=== PATIENT | male | born 1930 | race Caucasian/White ===

== ENCOUNTER 2018-01-04 15:49 | Inpatient (IN) | payer OTHER ==
[~2018-01-04] VITALS: Ht 182.9 cm; Wt 85.7 kg
--- NOTE | 2018-01-04 15:49 | NUR ---
BROUGHT IN BY [facility], PLACED IN BED #3 AND TRIAGED. REPORT GIVEN TO VAL
[2018-01-04 15:50] VITALS: BP_SYST 147
--- NOTE | 2018-01-04 16:00 | NUR ---
PT BIB FOR HEAD AND AND HAND INJURY S/P UNWITNESSED FALL. PT HAS HEMATOMA TO R FOREHEAD.PT [facility] [place].
[2018-01-04] MEDS ORDERED: MORPHINE 2 MG/ML INJ. SYRINGE IVP ONE (17:00)
[2018-01-04] MEDS ORDERED: DIPHENHYDRAMINE INJ 50 MG/ML VIAL IVP ONE (17:00)
[2018-01-04 17:07] LABS: BASOPHILS % (AUTO) 0.7 % (0.0-2.0); EOSINOPHILS # (AUTO) 0.1 K/uL (0.0-0.4); EOSINOPHILS % (AUTO) 1.9 % (0.0-4.0); HEMATOCRIT 32.8 % (36-54); HEMOGLOBIN 10.8 g/dL (14.0-18.0); LYMPHOCYTES # (AUTO) 0.6 K/uL (1.0-5.5); LYMPHOCYTES % (AUTO) 14.1 % (20.5-51.5); MEAN CORPUSCULAR HEMOGLOBIN 29 pg (27-31); MEAN CORPUSCULAR HGB CONC 33 % (32-36); MEAN CORPUSCULAR VOLUME 89 fL (79.0-98.0); MONOCYTES # (AUTO) 0.5 K/uL (0.0-1.0); MONOCYTES % (AUTO) 11.7 % (1.7-9.3); NEUTROPHILS # (AUTO) 3.4 K/uL (1.8-7.7); NEUTROPHILS % (AUTO) 71.6 % (40.0-70.0); PLATELET COUNT (AUTO) 126 K/uL (130-430); RED BLOOD CELL COUNT(AUTO) 3.69 MIL/uL (4.2-6.2); RED CELL DISTRIBUTION WIDTH 16.7 % (9.0-15.0); WHITE BLOOD COUNT (AUTO) 4.6 K/uL (4.8-10.8)
--- NOTE | 2018-01-04 17:10 | NUR ---
PT MEDICATED FOR HTN. 220/105. PT TOLERATED MEDICATION WELL.
[2018-01-04 17:19] LABS: PROTHROMBIN TIME 9.7 SECS (9.5-12.5)
--- NOTE | 2018-01-04 17:30 | NUR ---
WOUND CARE DONE BY EMT.
[2018-01-04 17:33] LABS: ANION GAP 7 (5-15); CALCIUM 8.5 mg/dL (8.4-11.0); CHLORIDE 111 mmol/L (98-107); CREATININE 1.69 mg/dL (0.55-1.30); GLUCOSE 111 mg/dL (70-99); POTASSIUM 3.9 mmol/L (3.5-5.1); SODIUM SERUM 143 mmol/L (136-145); UREA NITROGEN, BLOOD 28 mg/dL (8-21)
[2018-01-04 17:40] LABS: ALANINE AMINOTRANSFERASE 19 U/L (12-78); ALBUMIN 3.3 g/dL (3.4-4.8); ASPARTATE AMINOTRANSFERASE 15 U/L (10-37); FREE T4 (FREE THYROXINE) 0.5 ng/dL (0.6-1.6); TOTAL BILIRUBIN 0.2 mg/dL (0.0-1.0)
[2018-01-04 17:43] LABS: ALCOHOL, BLOOD < 3 mg/dL (<10)
[2018-01-04] MEDS ORDERED: cloNIDine HCL 0.1 MG TABLET PO ONE ×2 (17:45→20:00)
[2018-01-04] MEDS ORDERED: BACITRACIN 1 GM OINT TP ONE (17:48)
--- NOTE | 2018-01-04 18:40 | NUR ---
PT TO BE ADMITTED PER REQUEST OF FAMILY AFTER DISCUSSION W/ .CONTINUING TO MONITOR
--- NOTE | 2018-01-04 19:10 | NUR ---
Recieved report from Rj REYES will assume care at this time.
--- NOTE | 2018-01-04 19:30 | NUR ---
End of life care decisions discussed with patient by Dr. Guzmán. Opportunity for questions and concerns addressed. Patient's code status is Full Code paperwork completed and placed in chart.
--- NOTE | 2018-01-04 20:01 | NUR ---
Patient will be admitted to care of Dr. Rizzo. Admitted to Telemetry unit. Will go to room 114A. Belongings list completed. Summary report printed. Report will be given at bedside.
--- NOTE | 2018-01-04 20:05 | NUR ---
Patient to be admitted to telemetry. Patient current blood pressure 206/93. 0.2mg catapress to be given to normalize blood pressure prior to transfer.
[2018-01-04] MEDS ORDERED: BUPR300T55 PO (20:26)
[2018-01-04] MEDS ORDERED: FINA5TAB3 PO (20:26)
[2018-01-04] MEDS ORDERED: VILA20TA PO (20:26)
[2018-01-04] MEDS ORDERED: FAMO20TA8 PO (20:26)
[2018-01-04] MEDS ORDERED: COR25 PO (20:26)
[2018-01-04] MEDS ORDERED: DIVA250T PO ×2 (20:26)
[2018-01-04] MEDS ORDERED: LIP10 PO (20:26)
[2018-01-04] MEDS ORDERED: VITD2000 PO (20:26)
--- NOTE | 2018-01-04 20:26 | NUR ---
Medication reconciliation completed with information provided by PATIENT'S FAMILY. Any prior medication reconciliation on file was reviewed and corrected.
[2018-01-04] MEDS ORDERED: hydrALAZINE HCL 20 MG/ML VIAL IVP ONE (20:30)
[2018-01-04] MEDS ORDERED: MORPHINE 4 MG/ML INJ. SYRINGE IVP ONE (20:45)
[2018-01-04 20:48] VITALS: BP_SYST 149
--- NOTE | 2018-01-04 20:48 | NUR ---
ADMISSION NOTE Received patient from ER via gurney. Patient admitted with diagnosis of Brain Mass. Patient is awake, alert, oriented X 3. Patient oriented to hospital room, call light, toileting, pain management and safety-teach back done. Patient informed that AMY Cramer will be PRIMARY nurse and that their room number is 114A. Personal belongings checked and Belongings List documented. Call light within reach.
--- NOTE | 2018-01-04 20:50 | NUR ---
Transfer to Telemetry via ACLS protocol. Licensed nurse present. IV present no signs or symptoms of infiltration.
--- NOTE | 2018-01-04 21:00 | NUR ---
Initial RN Note Pt is fully awake, alert and oriented x3. No c/o pain or discomfort at this time. Pt is Hungarian speaking and able to make his needs known. Saline lock in LAC is without any signs of infiltration. Rt arm and left 5th finger splints are intact with no circulatory impairment noted. Call light is with pt and bed alarm is on. Pt was instructed to call for assistance as needed and pt verbalized understanding.
--- NOTE | 2018-01-04 23:00 | NUR ---
Rounds Pt is sleeping comfortably in bed. No acute distress noted. Fall and seizure precautions are in place.
[2018-01-05 00:40] VITALS: BP_SYST 172
--- NOTE | 2018-01-05 01:00 | NUR ---
Rounds Pt continues to sleep without any distress noted. Call light is with pt and bed alarm is on. Side rails are padded and no seizure activity noted.
--- NOTE | 2018-01-05 03:00 | NUR ---
Rounds Pt is sleeping without any distress noted. Call light is with pt and bed alarm is on. No seizure activity noted and side rails are padded.
[2018-01-05 03:20] VITALS: BP_SYST 94
--- NOTE | 2018-01-05 05:00 | NUR ---
Rounds Pt is sleeping comfortably in bed. Fall, seizure and safety precautions are in place.
--- NOTE | 2018-01-05 06:32 | NUR ---
Closing Note Pt is awake and resting quietly in bed. No c/o pain or discomfort. Saline lock is intact in LAC. Call light is with pt and bed alarm is on. Splints on right arm and left 5th finger are dry and intact with neurovascular checks WNL. Will endorse to day shift nurse.
--- NOTE | 2018-01-05 07:13 | NUR ---
Opening Note Patient resting in bed, eyes closed, breathing unlabored on room air, symmetrical chest expansion, no signs of distress, IV site saline locked, safety precautions in place, bed in lowest position with 3 side rails up, bed alarm on, call light and bedside table left within reach, will be back to check on patient
[2018-01-05 08:05] VITALS: BP_SYST 121
[2018-01-05] MEDS ORDERED: HYDROcodone/ACETAMIN 5-325 MG TAB (NORCO/ VICODIN) PO PRN (08:15)
[2018-01-05] MEDS: buPROPion HCL 150 MG XL TAB PO SCH (08:44)
[2018-01-05] MEDS: FINASTERIDE 5 MG TABLET (PROSCAR) PO SCH (08:45)
[2018-01-05] MEDS: CARVEDILOL 25 MG TABLET (COREG) PO SCH ×2 (08:45→21:13)
[2018-01-05] MEDS: FAMOTIDINE 20 MG TABLET PO SCH (08:45)
[2018-01-05] MEDS: DIVALPROEX SODIUM 250 MG TAB.SR.24H (DEPAKOTE ER) PO SCH ×2 (08:45→21:05)
[2018-01-05] MEDS: HYDROcodone/ACETAMIN 5-325 MG TAB (NORCO/ VICODIN) PO PRN ×2 (08:54→18:18)
[2018-01-05] MEDS ORDERED: NON-FORMULARY MEDICATION (Vilazodone Hydrochloride (Viibryd) 40 MG) PO SCH (09:00)
--- NOTE | 2018-01-05 09:03 | NUR ---
Medication Administration Patient resting in bed, awake and alert, educated him regarding medications, verbalized understanding, tolerated well by mouth, breathing unlabored on room air, neurovascular checks assessed, able to move fingers and cap refill <3 seconds, educated patient on pain management, verbalized understanding, administered per pain protocol, educated patient on use of call light for assistance, verbalized understanding, call light and bedside table left within reach, will continue to monitor
--- NOTE | 2018-01-05 09:15 | NUR ---
Dr. Matthias Cortez at this time, will follow through with MD mathias
--- NOTE | 2018-01-05 09:50 | NUR ---
CONSULT ORTHO RADIAL FRACTURE DR WOO [phone] S/W [facility] OFFICE @7089
--- NOTE | 2018-01-05 10:00 | NUR ---
CONSULT ONCOLOGY MELANOMA DR BUNDY [phone] S/W [facility] OFFICE @ 3516
--- NOTE | 2018-01-05 11:57 | NUR ---
Wound Evaluation: Late note for 1157 secondary to patient care. Wound Consult ordered for Low Ramana Score. Patient evaluated for a low Ramana score of 16. Patient was awake, alert, oriented 3, and received in a Ann Marie Bed with an Atmos-Air 9000 mattress. Patient needs assist to turn in bed. Skin is fair. Recommend encourage and assist patient every 2 hours with pillow support. Elevate, off-load and float bilateral heels with pillows. Offload pressure areas with pillows for pressure re-distribution. Perform skin care and monitor skin integrity Q shift. Use moisture barrier cream on moisture susceptible areas QID and PRN for soiling. Skin assessment: 1. Right anterior lateral forehead: Bump, with ecchymosis, sustained from fall, present on admission. Site has 85% red tissue, 5% pink tissue, 10% black tissue. No odor, no drainage. Periwound intact. Measures 3.9 cm x 3.17. Recommend: No dressing needed. Continue to monitor site for worsening condition. Will continue to follow as a Ramana.
--- NOTE | 2018-01-05 12:45 | NUR ---
Neurovascular Check performed at this time, able to wiggle fingers of both hands, denies pain at this time, states it is uncomfortable, educated patient on pain management, verbalized understanding, IV site saline locked, no other needs at this time, educated patient on use of call light for assitance, verbalized understanding, safety precautions remain in place, room close to station, bedside table and call light left within reach, will continue to monitor
[2018-01-05 12:50] VITALS: BP_SYST 128
--- NOTE | 2018-01-05 14:04 | NUR ---
Patient resting in bed awake and alert, neurovascular checks within normal limits on both extremities, IV site patent, breathing unlabored on room air, safety precautions remain in place, room close to station, bedside table and call light left within reach, will continue to monitor
--- NOTE | 2018-01-05 16:05 | NUR ---
Dr. Hennessy rounded, casting cart at bedside, MD stated patient will not receive cast today, pending X-ray results, stated bruising on fingers is normal, neurovascular checks are within normal limits, patient resting in bed, safety precautions remain in place, bedside table and call light left within reach, will continue to monitor
[2018-01-05 16:50] VITALS: BP_SYST 140
[2018-01-05] MEDS ORDERED: COMMUNICATION ORDER XX SCH (17:15)
[2018-01-05] MEDS: VIIBRYD 40 MG PO SCH (18:17)
[2018-01-05] MEDS: D5/0.45 NS 1,000 ML IV SCH (18:18)
--- NOTE | 2018-01-05 18:30 | NUR ---
Pain Medication patient resting in bed, awake and alert, complaining of pain on his right arm, stated he his arm on the side rail, norco given per pain scale, IV fluids infusing at this time, breathing unlabored on room air, IV site patent, safety precautions in place, bedside table and call light left within reach, will continue to monitor
--- NOTE | 2018-01-05 19:10 | NUR ---
OPENING NOTE Patient resting in bed awake, alert, oriented x4. Breathing unlabored and even on room air. No signs of distress, no needs at this time. Fall and safety precautions in place. Bed in lowest position, brake on, alarm on, call light within reach. IVF infusing as ordered via left AC #20. Will continue to monitor.
[2018-01-05 20:00] VITALS: BP_SYST 144
[2018-01-05] MEDS: ATORVASTATIN 10 MG TABLET PO SCH (21:05)
[2018-01-05] MEDS ORDERED: CARVEDILOL 25 MG TABLET (COREG) ONE (21:10)
--- NOTE | 2018-01-05 23:52 | NUR ---
Patient resting in bed with eyes closed. Breathing unlabored and even on room air. No signs of distress, no needs at this time. Fall and safety precautions in place. Bed in lowest position, brake on, alarm on, call light within reach. IVF infusing as ordered. Will continue to monitor.
[2018-01-06 00:08] VITALS: BP_SYST 145
[2018-01-06] MEDS: HYDROcodone/ACETAMIN 5-325 MG TAB (NORCO/ VICODIN) PO PRN ×4 (03:12→20:08)
--- NOTE | 2018-01-06 03:12 | NUR ---
Pt c/o pain. Administered PRN norco PO as ordered. Educated pt on safety and side effects. Encouraged call for assist.
[2018-01-06 06:52] LABS: ANION GAP 5 (5-15); CALCIUM 8.3 mg/dL (8.4-11.0); CHLORIDE 108 mmol/L (98-107); CREATININE 1.79 mg/dL (0.55-1.30); GLUCOSE 110 mg/dL (70-99); SODIUM SERUM 140 mmol/L (136-145); UREA NITROGEN, BLOOD 27 mg/dL (8-21)
--- NOTE | 2018-01-06 07:25 | NUR ---
CLOSING NOTE Gave report to day shift nurse, Shailesh, RN. Patient resting in bed awake, alert, oriented x4. Breathing unlabored and even on room air. No signs of distress, no needs at this time. Fall and safety precautions in place. Bed in lowest position, brake on, alarm on, call light within reach. IVF infusing as ordered. Informed Shailesh that Dr. Rod will be arriving this morning for possible cast/splint placement. Casting cart at the bedside. Endorsed care to day shift nurse.
--- NOTE | 2018-01-06 07:40 | NUR ---
AM rounds patient resting in bed, a/ox4, denies pain, assessment complete, right arm in cast and left hand fingers in splint, neurovascular checks complete, IV line is patent and infusing well, educated the patient on plan of care and call light system and to call for any assistance, he verbalized understanding, bed in lowest position, three side rails up, bed alarm on, bed close to nursing station, fall, aspiration and seizure precautions in place, continuing to monitor.
--- NOTE | 2018-01-06 07:45 | NUR ---
Dr. Viola eduardo, splinted/casted the patient's left hand and forearm, continuing neurochecks, patient tolerated well.
--- NOTE | 2018-01-06 08:37 | NUR ---
Called pharmacy missing Depakote 250mg PO, not available in Pyx[facility], spoke with Uzair who will refill the medication.
[2018-01-06] MEDS: CARVEDILOL 25 MG TABLET (COREG) PO SCH ×2 (08:42→20:43)
[2018-01-06] MEDS: FAMOTIDINE 20 MG TABLET PO SCH (08:42)
[2018-01-06] MEDS: buPROPion HCL 150 MG XL TAB PO SCH (08:43)
[2018-01-06] MEDS: FINASTERIDE 5 MG TABLET (PROSCAR) PO SCH (08:43)
[2018-01-06] MEDS: VIIBRYD 40 MG PO SCH ×2 (08:47→09:03)
--- NOTE | 2018-01-06 08:47 | NUR ---
Medications patient resting in bed, awake, denies pain, educated him on all medications uses and potential side effects, he verbalized understanding and tolerated well, no other need at this time, bed in lowest position, three side rails up, bed alarm on, call light placed within reach, fall, aspiration and seizure precautions in place.
[2018-01-06 08:49] VITALS: BP_SYST 147
--- NOTE | 2018-01-06 09:00 | NUR ---
Medications patient resting in bed, awake, denies pain, educated him on all medications uses and potential side effects, he verbalized understanding and tolerated well, no other need at this time, bed in lowest position, three side rails up, bed alarm on, call light placed within reach, fall, aspiration and seizure precautions in place, assisted the patient to call his , busy tone at this time, will try again.
[2018-01-06] MEDS: DIVALPROEX SODIUM 250 MG TAB.SR.24H (DEPAKOTE ER) PO SCH ×2 (09:02→20:44)
--- NOTE | 2018-01-06 09:20 | NUR ---
Pain medication patient resting in bed, awake, states moderate pain level, educated him on pain medication uses and potential side effects, patient verbalized understanding and tolerated well, no other needs at this time, bed in lowest position, three side rails up, bed alarm on, bed close to nursing station, fall, aspiration and seizure precautions in place.
--- NOTE | 2018-01-06 09:48 | NUR ---
Nutrition Update Ramana Scale 16 noted. Pt admitted for brain mass. Diet: regular BMI: 25.6 kg/m2 RD to follow per nutrition care standards.
--- NOTE | 2018-01-06 10:05 | NUR ---
Dr. Rizzo rounds updates given, will follow up with any new orders.
[2018-01-06 12:00] VITALS: BP_SYST 111
--- NOTE | 2018-01-06 12:00 | NUR ---
DC Planning: CM spoke with pt.regarding dcp to [facility] [place] for rehab. The pt. requested cm to call Bobby/nephew or Addie/niece for their decisions. Stanley s/w with Bobby Davila at cell# [phone], work # [phone] who agreed for pt. dc to [facility] for rehabilitation. The pt. is scheduled for right distal radius and ulna fracture and left little finger acute proximal phalanx fracture surgery tomorrow.
--- NOTE | 2018-01-06 12:59 | NUR ---
RN rounds patient was up with Physical therapy, needs 2 person assistance, plan is for patient to go to SNF, family requesting slick Robertson CM. Patient is currently resting in bed, eyes closed, breathing is even and unlabored, no acute distress, bed in lowest position, three side rails up, call light within reach, fall, aspiration, seizure precautions in place, bed alarm on.
--- NOTE | 2018-01-06 14:42 | NUR ---
RN rounds patient resting in bed, was given pain medication by Annie RN, patient states pain has now improved, continuing to monitor the patient, bed in lowest position, three side rails up, bed alarm on, bed close to nursing station, fall, aspiration and seizure precautions in place, continuing to monitor.
--- NOTE | 2018-01-06 14:43 | NUR ---
Discharge Planning: LABORATORY MECHANIC HELPER has faxed dc planning packet to [facility] per CM request.
--- NOTE | 2018-01-06 15:19 | NUR ---
RN Rounds patient resting in bed, states he is uncomfortable due to being wet, cleaned the patient, turned and repositioned, patient states he feels better now, continuing to monitor, patient states pain is mild but tolerable for now, bed in lowest position, three side rails up, bed alarm on, call light placed within reach, fall, aspiration and seizure precautions in place.
[2018-01-06 16:00] VITALS: BP_SYST 117
[2018-01-06] MEDS: D5/0.45 NS 1,000 ML IV SCH (17:07)
--- NOTE | 2018-01-06 17:13 | NUR ---
RN Rounds Patient resting in bed, awake, assisted him to reposition in the bed, he states he is having pain, rated it at a mild level at this time which is tolerable at this time, new bag of IVF hung, infusing well, no other needs at this time, bed in lowest position, three side rails up, bed alarm on, call light placed within reach, fall, aspiration and seizure precautions in place.
--- NOTE | 2018-01-06 18:08 | NUR ---
Closing note patient trying to get out of bed to use the urinal, assisted the patient, cleaned him and with assistance repositioned him, patient denies pain at this time, states, "I do not feel like eating at this time," all needs met at this time, will endorse report to [facility] shift nurse, bed in lowest position, three side rails up, bed alarm on, call light placed within reach, fall, aspiration and seizure precautions in place. Addendum: 01/06/18 at 183 by Shailesh Sutherland RN Patient would like to speak to Dr. Rod regarding surgery, would like further clarification. Addendum: 01/06/18 at 184 by Shailesh Sutherland RN patient caregiver Diane at bedside, states that the patient is not sure about the surgery and would like to talk to the doctor about it more and it's best to ask the patient's niece or nephew about the surgery.
--- NOTE | 2018-01-06 18:44 | NUR ---
Attempted to call family called patient's nephew Edd Rahman at [phone] as list in patient's chart, no answer at this time.
--- NOTE | 2018-01-06 18:48 | NUR ---
Spoke with Dr. Viola Rod called to check on the patient's status, updates given at this time, informed him that the patient has some concerns regarding surgery and that attempt to reach family was made, Dr. Rod states he is familiar with the patient and his and will come tomorrow morning to speak with the patient about surgery again, keep the patient NPO except medications.
--- NOTE | 2018-01-06 19:25 | NUR ---
ROUNDS PATIENT RESTING COMFORTABLY IN BED, NOT IN DISTRESS, VITALS STABLE. NO PAIN AT THIS TIME. ASSESSMENT DONE AND DOCUMENTED. SEE FLOWSHEET. NEEDS ATTENDED TO. TURNED AND REPOSITIONED. SAFETY AND FALL PRECAUTION IN PLACED. BED IN LOW AND LOCKED POSITION. BED ALARM ON. CALL LIGHT PLACED WITHIN REACH.
[2018-01-06] MEDS: ATORVASTATIN 10 MG TABLET PO SCH (20:41)
--- NOTE | 2018-01-06 21:14 | NUR ---
MEDICATION DUE MEDICATIONS GIVEN ORDERED, TOLERATED WELL. WILL CONTINUE TO MONITOR.
--- NOTE | 2018-01-07 00:10 | NUR ---
PATIENT RESTING: Patient resting quietly. No acute distress noted. Vital signs within normal range.
[2018-01-07 00:26] VITALS: BP_SYST 165
--- NOTE | 2018-01-07 02:20 | NUR ---
ROUNDS PATIENT ASLEEP, VITALS STABLE, NO SIGNS OF ANY PAIN AND DISCOMFORT NOTED AT THIS TIME. WILL CONTINUE TO MONITOR.
--- NOTE | 2018-01-07 04:10 | NUR ---
PATIENT RESTING: Patient resting quietly. No acute distress noted. Vital signs within normal range.
--- NOTE | 2018-01-07 06:40 | NUR ---
CLOSING NOTES PATIENT AWAKE, NOT IN DISTRESS, VITALS STABLE. NO PAIN AT THIS TIME. ALL NEEDS ATTENDED TO. SAFETY AND FALL PRECAUTION MEASURES MAINTAINED. CALL LIGHT PLACED WITHIN REACH.
[2018-01-07 06:53] LABS: ANION GAP 10 (5-15); CALCIUM 8.5 mg/dL (8.4-11.0); CHLORIDE 109 mmol/L (98-107); CREATININE 1.78 mg/dL (0.55-1.30); GLUCOSE 109 mg/dL (70-99); POTASSIUM 3.8 mmol/L (3.5-5.1); SODIUM SERUM 143 mmol/L (136-145); UREA NITROGEN, BLOOD 27 mg/dL (8-21)
[2018-01-07 07:17] LABS: BILIRUBIN,URINE NEGATIVE (NEGATIVE); BLOOD, URINE 1+ (NEGATIVE); CLARITY/URINE CLEAR (CLEAR); COLOR,URINE ORANGE (YELLOW); GLUCOSE,URINE NEGATIVE (NEGATIVE); KETONES,URINE NEGATIVE (NEGATIVE); LEUKOCYTE ESTERASE ,URINE NEGATIVE (NEGATIVE); NITRITE, URINE NEGATIVE (NEGATIVE); PROTEIN URINE 1+ (NEGATIVE); UROBILINOGEN,URINE 0.2 (0.2-1.0)
[2018-01-07 07:59] LABS: BACTERIA,URINE FEW /HPF (None Seen); MUCUS,URINE None Seen /LPF (None Seen); WBC,URINE 0-3 /HPF (0-3); YEAST,URINE None Seen /HPF (None Seen)
[2018-01-07 08:00] VITALS: BP_SYST 190
--- NOTE | 2018-01-07 08:00 | NUR ---
Opening Note Report received from [facility] shift nurse. Patient has a fracture of the right wrist. Right arm is currently in a cast. Bilateral radial pulses are palpable and he is able to move all the fingers on the affected extremities. Patient also has a fracture of the left little finger which is in a splint. Patient is wake. Dr. Rod rounded on the patient. Informed consent was obtained and placed in the chart. IV is on the LAC 18g running D51/2NS@40. Seizure and fall precautions are in place. Will continue to monitor.
[2018-01-07] MEDS: buPROPion HCL 150 MG XL TAB PO SCH (09:00)
[2018-01-07] MEDS: FINASTERIDE 5 MG TABLET (PROSCAR) PO SCH (09:00)
[2018-01-07] MEDS: FAMOTIDINE 20 MG TABLET PO SCH (09:04)
[2018-01-07] MEDS: HYDROcodone/ACETAMIN 5-325 MG TAB (NORCO/ VICODIN) PO PRN (09:04)
[2018-01-07] MEDS: CARVEDILOL 25 MG TABLET (COREG) PO SCH ×2 (09:05→20:29)
[2018-01-07] MEDS: DIVALPROEX SODIUM 250 MG TAB.SR.24H (DEPAKOTE ER) PO SCH ×2 (09:06→20:30)
[2018-01-07] MEDS: VIIBRYD 40 MG PO SCH (09:06)
[2018-01-07 09:28] LABS: BASOPHILS % (AUTO) 0.5 % (0.0-2.0); EOSINOPHILS # (AUTO) 0.1 K/uL (0.0-0.4); EOSINOPHILS % (AUTO) 2.4 % (0.0-4.0); HEMATOCRIT 32.5 % (36-54); HEMOGLOBIN 10.6 g/dL (14.0-18.0); LYMPHOCYTES # (AUTO) 0.5 K/uL (1.0-5.5); LYMPHOCYTES % (AUTO) 9.3 % (20.5-51.5); MEAN CORPUSCULAR HEMOGLOBIN 29 pg (27-31); MEAN CORPUSCULAR HGB CONC 33 % (32-36); MEAN CORPUSCULAR VOLUME 88 fL (79.0-98.0); MONOCYTES # (AUTO) 0.8 K/uL (0.0-1.0); MONOCYTES % (AUTO) 13.6 % (1.7-9.3); NEUTROPHILS # (AUTO) 4.5 K/uL (1.8-7.7); NEUTROPHILS % (AUTO) 74.2 % (40.0-70.0); PLATELET COUNT (AUTO) 115 K/uL (130-430); RED BLOOD CELL COUNT(AUTO) 3.69 MIL/uL (4.2-6.2); WHITE BLOOD COUNT (AUTO) 5.9 K/uL (4.8-10.8)
[2018-01-07 10:05] VITALS: BP_SYST 164
--- NOTE | 2018-01-07 10:49 | NUR ---
RN Notes Patient is on the way to OR. All consents were signed and placed on the chart.
[2018-01-07] MEDS ORDERED: POLYMYXIN 500,000/BACIT.10,000 UNITS in NS IRR 1 L IR ONE (12:11)
[2018-01-07] MEDS ORDERED: ONDANSETRON HCL 4 MG/2 ML VIAL ONE (12:35)
[2018-01-07] MEDS ORDERED: SEVOFLURANE 15 MIN GAS INH ONE (12:35)
[2018-01-07] MEDS ORDERED: CEFAZOLIN 2 GM IVPB PREMIX 50 ML IV ONE (12:35)
[2018-01-07] MEDS ORDERED: PROPOFOL 200MG/ 20ML VIAL (DIPRIVAN) IV ONE (12:35)
[2018-01-07] MEDS ORDERED: fentaNYL CITRATE/PF 100 MCG/2 ML AMP ONE (12:35)
[2018-01-07] MEDS ORDERED: LR 1,000 ML IV.SOLN IV ONE (12:35)
[2018-01-07] MEDS ORDERED: ROCURONIUM BROMIDE 10 MG/ML (ZEMURON) ONE (12:35)
[2018-01-07] MEDS ORDERED: MIDAZOLAM HCL 5 MG/ML VIAL (VERSED) IV ONE (12:35)
[2018-01-07] MEDS: LR 1,000 ML IV SCH ×2 (12:54→13:40)
[2018-01-07] MEDS ORDERED: MORPHINE 4 MG/ML INJ. SYRINGE IVP PRN ×3 (13:00)
[2018-01-07] MEDS ORDERED: METOCLOPRAMIDE HCL 10 MG/2 ML VIAL IVP PRN (13:00)
[2018-01-07] MEDS ORDERED: MORPHINE 4 MG/ML INJ. SYRINGE ONE (13:09)
[2018-01-07 14:30] VITALS: BP_SYST 189
--- NOTE | 2018-01-07 14:30 | NUR ---
RN Notes Patient returned from OR. Right arm is in a splint. Radial pulse is palpable and patient is able to move the finger in the affected extremity. Cap refill is < 3 seconds. Patient does not report any pain at the moment. Will continue to closely monitor.
--- NOTE | 2018-01-07 15:18 | NUR ---
PT NOTES CHART REVIEWED, BUT UNABLE TO SEE PATIENT TODAY D/T PROCEDURE, WILL FOLLOW UP WITH PATIENT TOMORROW IF POSSIBLE. RN AWARE. Addendum: 01/07/18 at 1522 by Lelo Oden PT PHYSICAL THERAPY CO-SIGN The Physical Therapy Progress Notes documented by [employer] have been reviewed. Reviewed/Co-Signed by: Lelo Oden, PT Documentation Done by: Yonathan Basurto, SECOND HAND
[2018-01-07 16:00] VITALS: BP_SYST 189
[2018-01-07] MEDS: D5/0.45 NS 1,000 ML IV SCH ×2 (16:15→20:58)
--- NOTE | 2018-01-07 16:22 | NUR ---
Discharge Planning: RADHA has spoken to Pastora at [facility]; pt can go to room 6b once cleared by surgeon and physicians. SHEET METAL ERECTOR has placed ambulance on will call with [facility] ([phone]); packet has been placed at nurses station.
--- NOTE | 2018-01-07 16:40 | NUR ---
Rounds Patient is currently using the IS and doing up top 1200. Right radial pulse is palpable, right hand cap refill is < 3 seconds, patient is able to move the fingers on the affected extremity.
[2018-01-07] MEDS ORDERED: cloNIDine HCL 0.1 MG TABLET PO PRN (16:45)
--- NOTE | 2018-01-07 17:00 | NUR ---
Spoke with MD Spoke with Dr. Rod who stated that the patient may be discharged tomorrow. Called Dr. Rizzo and notified MD. Also received and order for PRN blood pressure medication form Dr. Rizzo.
--- NOTE | 2018-01-07 18:28 | NUR ---
Closing Note Patient is resting in bed. Bilateral radial pulses are palpable, cap refill on both upper extremities are palpable, and patient is able to move all the fingers on the affected extremities. Patient is using the IS able to do 1200. IV is on the D51/2NS@40. Will continue to monitor.
--- NOTE | 2018-01-07 19:25 | NUR ---
ROUNDS PATIENT RESTING COMFORTABLY IN BED, VITALS STABLE, DENIES ANY PAIN AT THIS TIME. ASSESSMENT DONE AND DOCUMENTED. SEE FLOWSHEET. NEEDS ATTENDED TO. TURNED AND REPOSITIONED AND MADE COMFORTABLE. SAFETY AND FALL PRECAUTION MEASURES IN PLACED. BED IN LOW AND LOCKED POSITION. CALL LIGHT PLACED WITHIN REACH.
[2018-01-07 20:00] VITALS: BP_SYST 115
[2018-01-07] MEDS: ATORVASTATIN 10 MG TABLET PO SCH (20:29)
--- NOTE | 2018-01-07 21:13 | NUR ---
MEDICATION DUE MEDICATIONS GIVEN SCHEDULED, TOLERATED WELL. WILL CONTINUE TO MONITOR.
--- NOTE | 2018-01-08 00:14 | NUR ---
PATIENT RESTING: Patient resting quietly. No acute distress noted. Vital signs within normal range.
[2018-01-08 00:27] VITALS: BP_SYST 140
--- NOTE | 2018-01-08 02:14 | NUR ---
ROUNDS PATIENT ASLEEP, NO SOB NOR PAIN NOTED, WILL CONTINUE TO MONITOR.
[2018-01-08] MEDS: HYDROcodone/ACETAMIN 5-325 MG TAB (NORCO/ VICODIN) PO PRN ×2 (03:25→15:04)
--- NOTE | 2018-01-08 04:12 | NUR ---
PATIENT RESTING: Patient resting quietly. No acute distress noted. Vital signs within normal range.
--- NOTE | 2018-01-08 06:55 | NUR ---
CLOSING NOTES PATIENT ASLEEP, VITALS STABLE, NO PAIN AND DISCOMFORT NOTED AT THIS TIME. ALL NEEDS ATTENDED TO. CALL LIGHT PLACED WITHIN REACH.
[2018-01-08 07:14] LABS: ANION GAP 7 (5-15); CALCIUM 8.3 mg/dL (8.4-11.0); CHLORIDE 110 mmol/L (98-107); CREATININE 2.35 mg/dL (0.55-1.30); GLUCOSE 109 mg/dL (70-99); POTASSIUM 4.3 mmol/L (3.5-5.1); SODIUM SERUM 142 mmol/L (136-145); UREA NITROGEN, BLOOD 32 mg/dL (8-21)
--- NOTE | 2018-01-08 07:30 | NUR ---
Opening Note: Patient laying in bed resting. Patient denies pain and discomfort. Breathing is even and unlabored with no distress noted. IV patent and intact running IV fluids per MD order. Seizure pads on side rails. SCD's in place. Urinal at bedside. Safety precautions in place; bed in lowest position, wheels locked, side rails x3, bed alarm activated and call light within reach. No current needs. Will continue to monitor.
[2018-01-08 08:10] VITALS: BP_SYST 163
[2018-01-08] MEDS: buPROPion HCL 150 MG XL TAB PO SCH (08:47)
[2018-01-08] MEDS: CARVEDILOL 25 MG TABLET (COREG) PO SCH (08:47)
[2018-01-08] MEDS: FINASTERIDE 5 MG TABLET (PROSCAR) PO SCH (08:47)
[2018-01-08] MEDS: DIVALPROEX SODIUM 250 MG TAB.SR.24H (DEPAKOTE ER) PO SCH (08:47)
[2018-01-08] MEDS: FAMOTIDINE 20 MG TABLET PO SCH (08:47)
[2018-01-08] MEDS: VIIBRYD 40 MG PO SCH (08:48)
--- NOTE | 2018-01-08 10:17 | NUR ---
Spoke to Dr. Mcmanus: Spoke to Dr. Mcmanus regarding discharge order. Per Dr. Mcmanus "Discharge patient to [place], but admit patient under Dr. Rizzo because I don't go to [place]." Orders received to be entered by RN.
--- NOTE | 2018-01-08 11:00 | NUR ---
Dr. Rod at bedside: Dr. Rod at bedside. Assessed patient.
--- NOTE | 2018-01-08 12:00 | NUR ---
PHYSICAL THERAPY CO-SIGN The Physical Therapy Progress Notes documented by [employer]er have been reviewed. I concur with the documentation of this E BUSINESS MANAGER. Plan: continue PT as per plan of care as he shows some slow but good and steady progress with PT. Reviewed/Co-Signed by: Lelo Oden, PT Documentation Done by: Yonathan Basurto, E BUSINESS MANAGER Addendum: 01/08/18 at 1434 by Lelo Oden PT Amended: Links added.
[2018-01-08 12:04] VITALS: BP_SYST 149
--- NOTE | 2018-01-08 12:15 | NUR ---
Rounding: Patient sitting in bed resting, and caregiver at bedside. Patient repositioned. No distress noted. Morning medications tolerated well. Safety precautions in place. No current needs. Will continue to monitor.
--- NOTE | 2018-01-08 13:22 | NUR ---
Discharge Planning Note: ENGINE REPAIRER called [facility] and arranged transport for 1729. ENGINE REPAIRER called [facility] and spoke with Radha ([phone]) to provide update that pt will be transported there today; ENGINE REPAIRER confirmed that pt will be going to room 6B at [facility]. ENGINE REPAIRER updated pt's Nurse, Rekha. ENGINE REPAIRER updated pt's chart and placed chart at the nurses station. ENGINE REPAIRER met with pt, pt's (Tiburcio), and pt's caregiver at bedside. ENGINE REPAIRER provided update and provided pt's with [facility] pamphlet/contact information.
--- NOTE | 2018-01-08 13:44 | NUR ---
MRI Cancelled: MRI of the head cancelled by radiology department due to safety reasons, patient had pins placed in right wrist during surgery 01/07/18. Paged Dr. Edward to inform him and to recommend CT of the head with contrast per radiologist. Awaiting callback.
[2018-01-08 14:00] VITALS: BP_SYST 144
--- NOTE | 2018-01-08 14:06 | NUR ---
Called Dr. Rod's office to schedule appointment: Called Dr. Rod's office and scheduled and appointment for the patient on January 18 @ 1015.
--- NOTE | 2018-01-08 14:40 | NUR ---
Spoke to Dr. Edward: Spoke to Dr. Edward, made aware of cancelled MRI, Dr. Edward doesn't want a CT with contrast due to patient's renal function.
--- NOTE | 2018-01-08 15:40 | NUR ---
Called Report: Called [place] and gave report to Tessa REYES. All questions answered and call back number given.
[2018-01-08 16:03] VITALS: BP_SYST 144
--- NOTE | 2018-01-08 16:04 | NUR ---
Rounding: Patient laying in bed resting. Patient denies pain and discomfort. Breathing is even and unlabored with no distress noted. No current needs. Will continue to monitor.
--- NOTE | 2018-01-08 18:40 | NUR ---
D/C Patient Patient given medication reconciliation form and D/C instructions. Exit Care provided. Patient verbalized understanding. MD discussed with patient the results and treatment provided. Patient in stable condition, ID band removed. IV catheter removed, intact and dressing applied, no active bleeding. Patient educated on pain management. Patient, family and nuclear equipment design engineer aware of patient's follow up appointment with Dr. Rod. All belongings sent with patient's family to home. White wrist band with name and placed. Patient in pink gown and blanket. Tele monitor removed. Patient ate dinner before discharge. Patient transferred to [facility].
== END 2018-01-08 18:40 | DRG 510 ==
LOC: SED 15:49 → STU 19:58
PROVIDERS: ADMIT Internal Medicine Hospice and Palliative Medicine; ATTEND Internal Medicine Hospice and Palliative Medicine
PROC: 2W3DX1Z Immobilization of Left Lower Arm using Splint (ICD-10-PCS; 2018-01-06)
PROC: 2W38X1Z Immobilization of Right Upper Extremity using Splint (ICD-10-PCS; 2018-01-06)
PROC: 2W38X2Z Immobilization of Right Upper Extremity using Cast (ICD-10-PCS; 2018-01-06)
PROC: 0PSH35Z Reposition Right Radius with External Fixation Device, Percutaneous Approach (ICD-10-PCS; principal; 2018-01-07 11:00)
DX: S52.501A Unspecified fracture of the lower end of right radius, initial encounter for closed fracture (principal); N17.0 Acute kidney failure with tubular necrosis; S00.03XA Contusion of scalp, initial encounter; S52.601A Unspecified fracture of lower end of right ulna, initial encounter for closed fracture; C43.9 Malignant melanoma of skin, unspecified; E78.5 Hyperlipidemia, unspecified; F32.9 Major depressive disorder, single episode, unspecified; K21.9 Gastro-esophageal reflux disease without esophagitis; J44.9 Chronic obstructive pulmonary disease, unspecified; N40.0 Benign prostatic hyperplasia without lower urinary tract symptoms; I16.0 Hypertensive urgency; G62.9 Polyneuropathy, unspecified; G93.89 Other specified disorders of brain; I12.9 Hypertensive chronic kidney disease with stage 1 through stage 4 chronic kidney disease, or unspecified chronic kidney disease; S80.212A Abrasion, left knee, initial encounter; M19.042 Primary osteoarthritis, left hand; M19.041 Primary osteoarthritis, right hand; S80.211A Abrasion, right knee, initial encounter; N18.9 Chronic kidney disease, unspecified; W01.0XXA Fall on same level from slipping, tripping and stumbling without subsequent striking against object, initial encounter; S00.83XA Contusion of other part of head, initial encounter; S62.607A Fracture of unspecified phalanx of left little finger, initial encounter for closed fracture; Y93.89 Activity, other specified; Z85.51 Personal history of malignant neoplasm of bladder; Y92.098 Other place in other non-institutional residence as the place of occurrence of the external cause; Y99.8 Other external cause status; Z91.81 History of falling; Z85.46 Personal history of malignant neoplasm of prostate; S60.512A Abrasion of left hand, initial encounter; S60.511A Abrasion of right hand, initial encounter
CPT/HCPCS: 36415; 70450-TC; 71045; 72125-TC; 73140-TC; 74018; 76000; 80048; 80053; 80164-TC; 81000-TC; 82140-TC; 82533; 83605; 83735-TC; 83880; 84439; 84484; 85025; 85610-TC; 86886; 86900; 86901; 87040-TC; 87081; 93005; 94760; 96374; 96375; 96376; 97110-GP; 97116-GP; 97530-GP; 99285; C1713; G0482; J0690; J1200; J2250; J2270; J2405; J2704; J3010; J7120

== ENCOUNTER 2018-05-29 10:24 | Emergency (ER) | payer OTHER ==
[~2018-05-29] VITALS: Ht 182.9 cm; Wt 79.4 kg
[~2018-05-29 10:24] MED LIST: BUPR300T55 PO; COR25 PO; DIVA250T PO; FAMO20TA8 PO; FINA5TAB3 PO; LIP10 PO; VILA20TA PO; VITD2000 PO
[2018-05-29 10:29] VITALS: BP_SYST 207
[2018-05-29] MEDS ORDERED: KETOROLAC TROMETHAMINE 30 MG VIAL IVP ONE (10:30)
[2018-05-29] MEDS ORDERED: NACL 0.9% 1,000 ML IV ONE (10:30)
--- NOTE | 2018-05-29 10:30 | NUR ---
Patient to ER bed 6 to gown for evaluation. Side rails up. Report given to Alejandra REYES.
--- NOTE | 2018-05-29 10:34 | NUR ---
Dr Cloud at bedside examining patient
--- NOTE | 2018-05-29 10:35 | NUR ---
Pt brought by ambulance, A&Ox3, pt presents to ER with L leg , L hip pain, denies recent trauma, pt respirations even and unlabored, cap refill <3,pt denies chest pain, pt arrived with urinary catheter, no open wounds noted.
--- NOTE | 2018-05-29 10:50 | NUR ---
X-ray at bedside.
--- NOTE | 2018-05-29 11:00 | NUR ---
16 # FR Neri catheter with use of sterile technique. Immediate return of 200 cc urine noted. Bedside drainage bag placed below level of bladder. Urine sample collected and sent to lab. Pt tolerated procedure . Patient arrived with neri in place, changed due to standard of practice prior to admission. Patient unable to toilet self.
--- NOTE | 2018-05-29 11:30 | NUR ---
Pt on stable condition, VS WNL, respirations even and unlabored.
[2018-05-29 11:33] LABS: BASOPHILS % (AUTO) 0.5 % (0.0-2.0); EOSINOPHILS % (AUTO) 3.1 % (0.0-4.0); HEMATOCRIT 35.4 % (36-54); HEMOGLOBIN 11.3 g/dL (14.0-18.0); LYMPHOCYTES % (AUTO) 13.7 % (20.5-51.5); MEAN CORPUSCULAR HEMOGLOBIN 27 pg (27-31); MEAN CORPUSCULAR HGB CONC 32 % (32-36); MEAN CORPUSCULAR VOLUME 86 fL (79.0-98.0); MONOCYTES % (AUTO) 15.4 % (1.7-9.3); NEUTROPHILS % (AUTO) 67.3 % (40.0-70.0); PLATELET COUNT (AUTO) 198 K/uL (130-430); RED CELL DISTRIBUTION WIDTH 13.9 % (9.0-15.0); WHITE BLOOD COUNT (AUTO) 5.8 K/uL (4.8-10.8)
[2018-05-29 11:34] LABS: EOSINOPHILS # (AUTO) 0.2 K/uL (0.0-0.4); LYMPHOCYTES # (AUTO) 0.8 K/uL (1.0-5.5); MONOCYTES # (AUTO) 0.9 K/uL (0.0-1.0); NEUTROPHILS # (AUTO) 3.9 K/uL (1.8-7.7)
[2018-05-29 11:40] LABS: CHLORIDE 109 mmol/L (98-107); PROTHROMBIN TIME 9.8 SECS (9.5-12.5); SODIUM SERUM 144 mmol/L (136-145)
[2018-05-29 11:41] LABS: ANION GAP 7 (5-15); CALCIUM 9.1 mg/dL (8.4-11.0); GLUCOSE 87 mg/dL (70-99); UREA NITROGEN, BLOOD 28 mg/dL (8-21)
[2018-05-29 11:55] LABS: ALANINE AMINOTRANSFERASE 18 U/L (12-78); ALBUMIN 2.7 g/dL (3.4-4.8); ASPARTATE AMINOTRANSFERASE 20 U/L (10-37); LIPASE 153 U/L (73-393); TOTAL BILIRUBIN 0.2 mg/dL (0.0-1.0)
[2018-05-29 13:40] VITALS: BP_SYST 160
--- NOTE | 2018-05-29 13:40 | NUR ---
Patient given written and verbal discharge instructions and verbalizes understanding. ER MD discussed with patient the results and treatment provided. Patient in stable condition. ID arm band removed. IV catheter removed intact and dressing applied, no active bleeding. Rx of tramadol and motrin given. Patient educated on pain management and to follow up with PMD. Pain Scale 1. Opportunity for questions provided and answered. Medication side effect fact sheet provided.
[2018-05-29 14:15] LABS: BILIRUBIN,URINE NEGATIVE (NEGATIVE); BLOOD, URINE 2+ (NEGATIVE); CLARITY/URINE CLEAR (CLEAR); COLOR,URINE YELLOW (YELLOW); GLUCOSE,URINE NEGATIVE (NEGATIVE); KETONES,URINE NEGATIVE (NEGATIVE); LEUKOCYTE ESTERASE ,URINE 1+ (NEGATIVE); PH,URINE 6.5 (5.0-8.0); PROTEIN URINE 1+ (NEGATIVE)
[2018-05-29 14:16] LABS: NITRITE, URINE NEGATIVE (NEGATIVE); UROBILINOGEN,URINE 0.2 (0.2-1.0)
[2018-05-29 14:46] LABS: BACTERIA,URINE FEW /HPF (None Seen); WBC,URINE 20-50 /HPF (0-3)
[2018-05-29 14:47] LABS: MUCUS,URINE None Seen /LPF (None Seen); YEAST,URINE None Seen /HPF (None Seen)
== END 2018-05-29 13:40 | disposition home or self-care (01) ==
LOC: SED 10:24
DX: G89.29 Other chronic pain (principal); M25.552 Pain in left hip; M79.605 Pain in left leg; R03.0 Elevated blood-pressure reading, without diagnosis of hypertension; K21.9 Gastro-esophageal reflux disease without esophagitis; Z86.79 Personal history of other diseases of the circulatory system; Z85.820 Personal history of malignant melanoma of skin; Z85.51 Personal history of malignant neoplasm of bladder; Z79.899 Other long term (current) drug therapy; Z96.642 Presence of left artificial hip joint
CPT/HCPCS: 36415; 51702; 71045; 73502; 73552; 80053; 81000; 82550; 83690; 84484; 85025; 85610; 85730; 87086; 93005; 96374; 99284; J1885; J7030

== ENCOUNTER 2018-06-03 01:33 | Inpatient (IN) | payer OTHER ==
[~2018-06-03] VITALS: Ht 185.4 cm; Wt 75.7 kg
[2018-06-03 01:33] VITALS: BP_SYST 135
[2018-06-03] MEDS ORDERED: NACL 0.9% 1,000 ML IV ONE (01:39)
[2018-06-03] MEDS ORDERED: TOPXL100 PO (02:00)
[2018-06-03] MEDS ORDERED: HYDR-3917 PO (02:00)
[2018-06-03] MEDS ORDERED: PRAM0.253 PO (02:00)
[2018-06-03] MEDS ORDERED: VENL75CA PO (02:00)
[2018-06-03] MEDS ORDERED: LORA-258 PO (02:00)
[2018-06-03] MEDS ORDERED: HYDR-4039 PO (02:00)
[2018-06-03] MEDS ORDERED: DOCU50CA13 PO (02:00)
[2018-06-03] MEDS ORDERED: METH10TA4 PO (02:00)
[2018-06-03] MEDS ORDERED: MAR2.5 PO (02:00)
[2018-06-03] MEDS ORDERED: DOXA4TAB2 PO (02:00)
[2018-06-03 02:02] LABS: HEMATOCRIT 35.9 % (36-54); HEMOGLOBIN 11.5 g/dL (14.0-18.0); MEAN CORPUSCULAR HEMOGLOBIN 28 pg (27-31); MEAN CORPUSCULAR VOLUME 87 fL (79.0-98.0); RED BLOOD CELL COUNT(AUTO) 4.14 MIL/uL (4.2-6.2); WHITE BLOOD COUNT (AUTO) 8.3 K/uL (4.8-10.8)
[2018-06-03 02:03] LABS: BASOPHILS # (AUTO) 0.3 K/uL (0.0-0.2); EOSINOPHILS # (AUTO) 0.3 K/uL (0.0-0.4); EOSINOPHILS % (AUTO) 3.1 % (0.0-4.0); LYMPHOCYTES # (AUTO) 0.9 K/uL (1.0-5.5); LYMPHOCYTES % (AUTO) 10.4 % (20.5-51.5); MEAN CORPUSCULAR HGB CONC 32 % (32-36); MONOCYTES # (AUTO) 0.8 K/uL (0.0-1.0); NEUTROPHILS % (AUTO) 72.5 % (40.0-70.0); PLATELET COUNT (AUTO) 228 K/uL (130-430); RED CELL DISTRIBUTION WIDTH 14.2 % (9.0-15.0)
[2018-06-03 02:39] LABS: SODIUM SERUM 147 mmol/L (136-145)
[2018-06-03 02:40] LABS: ALANINE AMINOTRANSFERASE 18 U/L (12-78); ANION GAP 12 (5-15); ASPARTATE AMINOTRANSFERASE 21 U/L (10-37); CALCIUM 8.9 mg/dL (8.4-11.0); CHLORIDE 108 mmol/L (98-107); CREATININE 1.93 mg/dL (0.55-1.30); GLUCOSE 109 mg/dL (70-99); TOTAL BILIRUBIN 0.2 mg/dL (0.0-1.0); UREA NITROGEN, BLOOD 40 mg/dL (8-21)
[2018-06-03 02:41] LABS: ALBUMIN 2.9 g/dL (3.4-4.8); ALCOHOL, BLOOD < 3 mg/dL (<10)
[2018-06-03 02:50] LABS: BILIRUBIN,URINE NEGATIVE (NEGATIVE); BLOOD, URINE 2+ (NEGATIVE); CLARITY/URINE CLEAR (CLEAR); COLOR,URINE YELLOW (YELLOW); GLUCOSE,URINE NEGATIVE (NEGATIVE); KETONES,URINE NEGATIVE (NEGATIVE); LEUKOCYTE ESTERASE ,URINE 2+ (NEGATIVE); PH,URINE 5.5 (5.0-8.0); PROTEIN URINE 2+ (NEGATIVE)
[2018-06-03 02:51] LABS: NITRITE, URINE POSITIVE (NEGATIVE); UROBILINOGEN,URINE 0.2 (0.2-1.0)
[2018-06-03 02:58] LABS: CANNABINOID, URINE POSITIVE (NEG <=50); OPIATE, URINE POSITIVE (NEG <=100)
[2018-06-03 02:59] LABS: BARBITURATE, URINE NEGATIVE (NEG <=200); BENZODIAZEPINE, URINE POSITIVE (NEG <=150); COCAINE, URINE NEGATIVE (NEG <=150); METHAMPHETAMINES SCREEN,URINE NEGATIVE (NEG <=500); PHENCYCLIDINE SCREEN,URINE NEGATIVE (NEG <=25); UR TRICYCLIC ANTIDEPRESSANTS NEGATIVE (NEG <=300); URINE AMPHETAMINE NEGATIVE (NEG <=500); URINE METHADONE NEGATIVE (NEG <=200); URINE OXYCODONE SCREEN NEGATIVE (NEG <=100); URINE PROPOXYPHENE SCREEN NEGATIVE (NEG <=300)
[2018-06-03 03:04] LABS: INR 0.9 (0.80-1.20); PROTHROMBIN TIME 9.6 SECS (9.5-12.5)
[2018-06-03 03:05] LABS: BACTERIA,URINE MODERATE /HPF (None Seen); RBC,URINE 50-80 /HPF (0-3); WBC,URINE >100 /HPF (0-3)
[2018-06-03] MEDS ORDERED: cefTRIAXone 1 GM IVPB PREMIX 50 ML IV ONE (03:45)
[2018-06-03] MEDS ORDERED: NACL 0.9% 1,000 ML IV SCH (04:15)
[2018-06-03] MEDS ORDERED: ACETAMINOPHEN 325 MG TABLET PO PRN ×2 (04:15→08:45)
[2018-06-03] MEDS ORDERED: hydrALAZINE HCL 20 MG/ML VIAL IVP ONE (04:30)
[2018-06-03 05:37] VITALS: BP_SYST 152
[2018-06-03 08:03] VITALS: BP_SYST 158
[2018-06-03] MEDS ORDERED: DOXAZOSIN MESYLATE 2 MG TABLET PO SCH (09:00)
[2018-06-03] MEDS ORDERED: hydrALAZINE HCL 25 MG TABLET PO SCH (09:00)
[2018-06-03] MEDS ORDERED: NON-FORMULARY MEDICATION (Vilazodone Hydrochloride (Viibryd) 40 MG) PO SCH (09:00)
[2018-06-03] MEDS: DOCUSATE SODIUM 100 MG/10 ML UDC PO SCH (09:07)
[2018-06-03] MEDS: buPROPion HCL 150 MG XL TAB PO SCH (09:07)
[2018-06-03] MEDS: FINASTERIDE 5 MG TABLET (PROSCAR) PO SCH (09:09)
[2018-06-03] MEDS: DRONABINOL 2.5 MG CAPSULE PO SCH ×2 (09:09→20:47)
[2018-06-03] MEDS: 0.45% NACL 1,000 ML IV SCH ×2 (09:11→20:46)
[2018-06-03] MEDS: Effexor XR 37.5 MG PO SCH (09:33)
[2018-06-03] MEDS: METHYLPHENIDATE HCL 10 MG TABLET PO SCH (12:05)
[2018-06-03 12:07] VITALS: BP_SYST 121
[2018-06-03] MEDS: cefTRIAXone 1 GM in D5W 50 ML IV SCH (14:45)
[2018-06-03 16:30] VITALS: BP_SYST 161
[2018-06-03 20:30] VITALS: BP_SYST 171
[2018-06-03] MEDS: ATORVASTATIN 10 MG TABLET PO SCH (20:46)
[2018-06-03] MEDS: HYDROcodone/ACETAMIN 5-325 MG TAB (NORCO/ VICODIN) PO PRN (20:48)
[2018-06-04] VITALS (9 sets, daily range): BP systolic 100–189
[2018-06-04] MEDS: HYDROcodone/ACETAMIN 5-325 MG TAB (NORCO/ VICODIN) PO PRN (01:47)
[2018-06-04 06:51] LABS: BASOPHILS % (AUTO) 0.4 % (0.0-2.0); EOSINOPHILS # (AUTO) 0.2 K/uL (0.0-0.4); EOSINOPHILS % (AUTO) 2.3 % (0.0-4.0); HEMATOCRIT 30.7 % (36-54); LYMPHOCYTES # (AUTO) 0.8 K/uL (1.0-5.5); LYMPHOCYTES % (AUTO) 11.3 % (20.5-51.5); MEAN CORPUSCULAR HEMOGLOBIN 28 pg (27-31); MEAN CORPUSCULAR HGB CONC 33 % (32-36); MEAN CORPUSCULAR VOLUME 86 fL (79.0-98.0); MONOCYTES # (AUTO) 0.8 K/uL (0.0-1.0); MONOCYTES % (AUTO) 11.5 % (1.7-9.3); NEUTROPHILS % (AUTO) 74.5 % (40.0-70.0); PLATELET COUNT (AUTO) 173 K/uL (130-430); RED BLOOD CELL COUNT(AUTO) 3.55 MIL/uL (4.2-6.2); RED CELL DISTRIBUTION WIDTH 13.9 % (9.0-15.0); WHITE BLOOD COUNT (AUTO) 6.8 K/uL (4.8-10.8)
[2018-06-04 07:13] LABS: POTASSIUM 3.6 mmol/L (3.5-5.1); SODIUM SERUM 138 mmol/L (136-145)
[2018-06-04 07:14] LABS: ANION GAP 9 (5-15); CALCIUM 8.8 mg/dL (8.4-11.0); CHLORIDE 104 mmol/L (98-107); CREATININE 1.59 mg/dL (0.55-1.30); GLUCOSE 78 mg/dL (70-99); UREA NITROGEN, BLOOD 31 mg/dL (8-21)
[2018-06-04 07:16] LABS: THYROID STIMULATING HORMONE 0.99 uIu/mL (0.34-4.82)
[2018-06-04] MEDS: DRONABINOL 2.5 MG CAPSULE PO SCH ×2 (09:11→21:04)
[2018-06-04] MEDS: FINASTERIDE 5 MG TABLET (PROSCAR) PO SCH (09:11)
[2018-06-04] MEDS: DOCUSATE SODIUM 100 MG/10 ML UDC PO SCH (09:11)
[2018-06-04] MEDS: buPROPion HCL 150 MG XL TAB PO SCH (09:11)
[2018-06-04] MEDS: METHYLPHENIDATE HCL 10 MG TABLET PO SCH ×2 (09:12→14:59)
[2018-06-04] MEDS: Effexor XR 37.5 MG PO SCH (09:15)
[2018-06-04] MEDS: 0.45% NACL 1,000 ML IV SCH ×2 (09:23→21:17)
[2018-06-04] MEDS ORDERED: hydrALAZINE HCL 25 MG TABLET PO ONE ×2 (09:45→23:45)
[2018-06-04] MEDS ORDERED: GADOPENTETATE DIMEGLUMINE 15 ML VIAL IV ONE (13:43)
[2018-06-04] MEDS: hydrALAZINE HCL 25 MG TABLET PO SCH ×2 (14:00→21:04)
[2018-06-04] MEDS: cefTRIAXone 1 GM in D5W 50 ML IV SCH (14:59)
[2018-06-04] MEDS: ATORVASTATIN 10 MG TABLET PO SCH (21:04)
[2018-06-04] MEDS: LORazepam 1 MG TABLET PO PRN (21:06)
[2018-06-05 00:54] VITALS: BP_SYST 176
[2018-06-05] MEDS: hydrALAZINE HCL 25 MG TABLET PO SCH ×3 (05:05→21:07)
[2018-06-05] MEDS ORDERED: cloNIDine HCL 0.1 MG TABLET PO ONE (06:45)
[2018-06-05 08:00] VITALS: BP_SYST 155
[2018-06-05] MEDS: METHYLPHENIDATE HCL 10 MG TABLET PO SCH ×2 (09:04→11:28)
[2018-06-05] MEDS: DOCUSATE SODIUM 100 MG/10 ML UDC PO SCH (09:04)
[2018-06-05] MEDS: DRONABINOL 2.5 MG CAPSULE PO SCH ×2 (09:04→20:21)
[2018-06-05] MEDS: FINASTERIDE 5 MG TABLET (PROSCAR) PO SCH (09:04)
[2018-06-05] MEDS: buPROPion HCL 150 MG XL TAB PO SCH (09:05)
[2018-06-05] MEDS: Effexor XR 37.5 MG PO SCH (09:05)
[2018-06-05 11:25] VITALS: BP_SYST 150
[2018-06-05] MEDS: cefTRIAXone 1 GM in D5W 50 ML IV SCH (13:59)
[2018-06-05 15:33] VITALS: BP_SYST 151
[2018-06-05 20:00] VITALS: BP_SYST 166
[2018-06-05] MEDS: ATORVASTATIN 10 MG TABLET PO SCH (20:21)
[2018-06-05] MEDS: LORazepam 1 MG TABLET PO PRN (20:21)
[2018-06-05 23:18] VITALS: BP_SYST 177
[2018-06-06] MEDS: hydrALAZINE HCL 25 MG TABLET PO SCH ×3 (05:02→21:08)
[2018-06-06 08:00] VITALS: BP_SYST 189
[2018-06-06] MEDS: DOCUSATE SODIUM 100 MG/10 ML UDC PO SCH (09:00)
[2018-06-06] MEDS: DRONABINOL 2.5 MG CAPSULE PO SCH ×2 (09:01→20:23)
[2018-06-06] MEDS: buPROPion HCL 150 MG XL TAB PO SCH (09:01)
[2018-06-06] MEDS: METHYLPHENIDATE HCL 10 MG TABLET PO SCH ×2 (09:01→11:34)
[2018-06-06] MEDS: FINASTERIDE 5 MG TABLET (PROSCAR) PO SCH (09:01)
[2018-06-06] MEDS: Effexor XR 37.5 MG PO SCH (09:03)
[2018-06-06 12:30] VITALS: BP_SYST 150
[2018-06-06] MEDS ORDERED: MEROPENEM 500 MG in NS 50 ML IV ONE (13:45)
[2018-06-06 16:21] VITALS: BP_SYST 174
[2018-06-06 18:29] VITALS: BP_SYST 164
[2018-06-06 19:53] VITALS: BP_SYST 179
[2018-06-06] MEDS: ATORVASTATIN 10 MG TABLET PO SCH (20:23)
[2018-06-06] MEDS: LORazepam 1 MG TABLET PO PRN (20:23)
[2018-06-07] VITALS: BP_SYST 188
[2018-06-07] MEDS: hydrALAZINE HCL 25 MG TABLET PO SCH (05:05)
[2018-06-07 08:30] VITALS: BP_SYST 149
[2018-06-07] MEDS: Effexor XR 37.5 MG PO SCH (08:59)
[2018-06-07] MEDS: buPROPion HCL 150 MG XL TAB PO SCH (08:59)
[2018-06-07] MEDS: FINASTERIDE 5 MG TABLET (PROSCAR) PO SCH (08:59)
[2018-06-07] MEDS: DOCUSATE SODIUM 100 MG/10 ML UDC PO SCH (08:59)
[2018-06-07] MEDS: METHYLPHENIDATE HCL 10 MG TABLET PO SCH ×2 (08:59→13:29)
[2018-06-07] MEDS: DRONABINOL 2.5 MG CAPSULE PO SCH (08:59)
[2018-06-07] MEDS ORDERED: CEFEPIME 1 GM in D5W 50 ML IV SCH (12:30)
[2018-06-07 12:37] VITALS: BP_SYST 158
[2018-06-07 13:17] VITALS: BP_SYST 158
== END 2018-06-07 15:00 | disposition hospice, home (50) | DRG 640 ==
LOC: SED 01:33 → STU 04:09
PROVIDERS: ADMIT Internal Medicine; ATTEND Internal Medicine
DX: E87.0 Hyperosmolality and hypernatremia (principal); N17.0 Acute kidney failure with tubular necrosis; E44.0 Moderate protein-calorie malnutrition; N13.6 Pyonephrosis; I95.9 Hypotension, unspecified; C67.9 Malignant neoplasm of bladder, unspecified; B96.5 Pseudomonas (aeruginosa) (mallei) (pseudomallei) as the cause of diseases classified elsewhere; E86.0 Dehydration; G89.4 Chronic pain syndrome; F32.9 Major depressive disorder, single episode, unspecified; I12.9 Hypertensive chronic kidney disease with stage 1 through stage 4 chronic kidney disease, or unspecified chronic kidney disease; K21.9 Gastro-esophageal reflux disease without esophagitis; N18.9 Chronic kidney disease, unspecified; N40.0 Benign prostatic hyperplasia without lower urinary tract symptoms; R09.02 Hypoxemia; M19.90 Unspecified osteoarthritis, unspecified site; D63.8 Anemia in other chronic diseases classified elsewhere; Z96.649 Presence of unspecified artificial hip joint; Z96.659 Presence of unspecified artificial knee joint; Z85.820 Personal history of malignant melanoma of skin; Z87.440 Personal history of urinary (tract) infections; Z90.79 Acquired absence of other genital organ(s); Z85.51 Personal history of malignant neoplasm of bladder; Z68.22 Body mass index [BMI] 22.0-22.9, adult; Z79.899 Other long term (current) drug therapy
CPT/HCPCS: 36415; 70450-TC; 71045; 76770; 80048; 80053; 80307; 81000-TC; 83605; 83735-TC; 84443-TC; 84484; 85025; 85610-TC; 85730-TC; 87040-TC; 87086; 87186-TC; 92610-GN; 93005; 95816; 96361; 96365; 96375; 97110-GP; 97116-GP; 97530-GP; 99285; A9579; G0378; G0482; J0360; J0692; J0696; J2185; J7030; J7060; Q0167

== ENCOUNTER 2018-11-03 20:45 | Inpatient (IN) | payer OTHER ==
[~2018-11-03] VITALS: Ht 185.4 cm; Wt 70.4 kg
[2018-11-03 20:45] VITALS: BP_SYST 151
[~2018-11-03 20:45] MED LIST changes: -COR25 PO; -DIVA250T PO; +DOCU50CA13 PO; -FAMO20TA8 PO; +HYDR-3917 PO; +HYDR-4039 PO; -LIP10 PO; +LORA-258 PO; +MAR2.5 PO; +METH10TA4 PO; +PRAM0.253 PO; +VENL75CA PO; -VITD2000 PO
[2018-11-03] MEDS ORDERED: ACETAMINOPHEN 325 MG TABLET PO ONE (22:00)
[2018-11-04] VITALS (7 sets, daily range): BP systolic 98–147
[2018-11-04] MEDS ORDERED: KETOROLAC TROMETHAMINE 15 MG VIAL IM ONE (00:30)
[2018-11-04] MEDS ORDERED: KETOROLAC TROMETHAMINE 15 MG VIAL IVP ONE (00:45)
[2018-11-04 01:26] LABS: BASOPHILS # (AUTO) 0.1 K/uL (0.0-0.2); BASOPHILS % (AUTO) 1.1 % (0.0-2.0); EOSINOPHILS # (AUTO) 0.2 K/uL (0.0-0.4); EOSINOPHILS % (AUTO) 2.1 % (0.0-4.0); HEMATOCRIT 28.2 % (36-54); HEMOGLOBIN 9.2 g/dL (14.0-18.0); LYMPHOCYTES # (AUTO) 0.7 K/uL (1.0-5.5); LYMPHOCYTES % (AUTO) 8.8 % (20.5-51.5); MEAN CORPUSCULAR HEMOGLOBIN 28 pg (27-31); MEAN CORPUSCULAR HGB CONC 33 % (32-36); MEAN CORPUSCULAR VOLUME 85 fL (79.0-98.0); NEUTROPHILS # (AUTO) 5.6 K/uL (1.8-7.7); PLATELET COUNT (AUTO) 309 K/uL (130-430); RED BLOOD CELL COUNT(AUTO) 3.31 MIL/uL (4.2-6.2); RED CELL DISTRIBUTION WIDTH 16.6 % (9.0-15.0); WHITE BLOOD COUNT (AUTO) 7.4 K/uL (4.8-10.8)
[2018-11-04] MEDS ORDERED: NACL 0.9% 1,000 ML IV SCH (01:30)
[2018-11-04 01:31] LABS: ANION GAP 10 (5-15); CALCIUM 9.7 mg/dL (8.4-11.0); CHLORIDE 106 mmol/L (98-107); CREATININE 1.54 mg/dL (0.55-1.30); GLUCOSE 122 mg/dL (70-99); POTASSIUM 3.8 mmol/L (3.5-5.1); SODIUM SERUM 142 mmol/L (136-145); UREA NITROGEN, BLOOD 25 mg/dL (8-21)
[2018-11-04] MEDS ORDERED: MORPHINE 2 MG/ML INJ. SYRINGE IVP PRN (03:15)
[2018-11-04 05:08] LABS: BILIRUBIN,URINE NEGATIVE (NEGATIVE); BLOOD, URINE 3+ (NEGATIVE); CLARITY/URINE CLOUDY (CLEAR); COLOR,URINE RED (YELLOW); GLUCOSE,URINE TRACE (NEGATIVE); KETONES,URINE 1+ (NEGATIVE); LEUKOCYTE ESTERASE ,URINE 2+ (NEGATIVE); NITRITE, URINE POSITIVE (NEGATIVE); PROTEIN URINE 3+ (NEGATIVE)
[2018-11-04 05:15] LABS: BACTERIA,URINE MANY /HPF (None Seen); RBC,URINE >100 /HPF (0-3); WBC,URINE 50-80 /HPF (0-3)
[2018-11-04] MEDS ORDERED: ONDANSETRON HCL 4 MG/2 ML VIAL IVP PRN ×2 (05:30→08:30)
[2018-11-04 06:32] LABS: BASOPHILS # (AUTO) 0.1 K/uL (0.0-0.2); BASOPHILS % (AUTO) 0.9 % (0.0-2.0); EOSINOPHILS # (AUTO) 0.1 K/uL (0.0-0.4); EOSINOPHILS % (AUTO) 1.1 % (0.0-4.0); HEMATOCRIT 27.3 % (36-54); HEMOGLOBIN 8.7 g/dL (14.0-18.0); LYMPHOCYTES # (AUTO) 0.9 K/uL (1.0-5.5); LYMPHOCYTES % (AUTO) 13.1 % (20.5-51.5); MEAN CORPUSCULAR HEMOGLOBIN 28 pg (27-31); MEAN CORPUSCULAR HGB CONC 32 % (32-36); MEAN CORPUSCULAR VOLUME 87 fL (79.0-98.0); MONOCYTES % (AUTO) 14.4 % (1.7-9.3); NEUTROPHILS # (AUTO) 4.9 K/uL (1.8-7.7); NEUTROPHILS % (AUTO) 70.5 % (40.0-70.0); PLATELET COUNT (AUTO) 287 K/uL (130-430); RED BLOOD CELL COUNT(AUTO) 3.14 MIL/uL (4.2-6.2); RED CELL DISTRIBUTION WIDTH 16.2 % (9.0-15.0)
[2018-11-04 06:42] LABS: CALCIUM 10.1 mg/dL (8.4-11.0); CHLORIDE 111 mmol/L (98-107); CREATININE 1.88 mg/dL (0.55-1.30); GLUCOSE 127 mg/dL (70-99); POTASSIUM 5.1 mmol/L (3.5-5.1); SODIUM SERUM 147 mmol/L (136-145); UREA NITROGEN, BLOOD 29 mg/dL (8-21)
[2018-11-04 06:56] LABS: ANION GAP 12 (5-15)
[2018-11-04] MEDS ORDERED: POTASSIUM CHLORIDE 20 MEQ TAB.PRT.SR PO PRN (08:30)
[2018-11-04] MEDS ORDERED: MAGNESIUM SULFATE 50 ML IV PRN (08:30)
[2018-11-04] MEDS ORDERED: ZOLPIDEM TARTRATE 5 MG TABLET PO PRN (08:30)
[2018-11-04] MEDS ORDERED: ACETAMINOPHEN 325 MG TABLET PO PRN (08:30)
[2018-11-04] MEDS ORDERED: PRAMIPEXOLE DI-HCL 0.25 MG TABLET PO SCH (08:45)
[2018-11-04] MEDS: cefTRIAXone 1 GM IVPB PREMIX 50 ML IV SCH (09:21)
[2018-11-04] MEDS: TAMSULOSIN HCL 0.4 MG CAP PO SCH (09:22)
[2018-11-04] MEDS: amLODIPine BESYLATE 5 MG TABLET PO SCH (09:22)
[2018-11-04] MEDS: DRONABINOL 2.5 MG CAPSULE PO SCH ×2 (09:22→20:13)
[2018-11-04] MEDS: NACL 0.9% 1,000 ML IV SCH (09:22)
[2018-11-04] MEDS: FINASTERIDE 5 MG TABLET (PROSCAR) PO SCH (09:22)
[2018-11-04] MEDS: Effexor 37.5 MG TAB PO SCH ×2 (09:22→20:14)
[2018-11-04] MEDS: buPROPion HCL 150 MG XL TAB PO SCH (09:23)
[2018-11-04] MEDS: METHYLPHENIDATE HCL 10 MG TABLET PO SCH ×2 (12:22→12:58)
[2018-11-05 01:20] VITALS: BP_SYST 111
[2018-11-05] MEDS: NACL 0.9% 1,000 ML IV SCH ×2 (01:20→11:36)
[2018-11-05 07:38] LABS: BASOPHILS # (AUTO) 0.1 K/uL (0.0-0.2); BASOPHILS % (AUTO) 1.1 % (0.0-2.0); EOSINOPHILS # (AUTO) 0.1 K/uL (0.0-0.4); EOSINOPHILS % (AUTO) 0.9 % (0.0-4.0); LYMPHOCYTES # (AUTO) 0.6 K/uL (1.0-5.5); LYMPHOCYTES % (AUTO) 10.6 % (20.5-51.5); MEAN CORPUSCULAR HEMOGLOBIN 28 pg (27-31); MEAN CORPUSCULAR HGB CONC 32 % (32-36); MEAN CORPUSCULAR VOLUME 87 fL (79.0-98.0); MONOCYTES # (AUTO) 0.7 K/uL (0.0-1.0); NEUTROPHILS # (AUTO) 4.6 K/uL (1.8-7.7); NEUTROPHILS % (AUTO) 76.4 % (40.0-70.0); PLATELET COUNT (AUTO) 266 K/uL (130-430); RED BLOOD CELL COUNT(AUTO) 2.19 MIL/uL (4.2-6.2); RED CELL DISTRIBUTION WIDTH 16.6 % (9.0-15.0)
[2018-11-05 07:46] LABS: ANION GAP 9 (5-15); CALCIUM 9.4 mg/dL (8.4-11.0); CHLORIDE 105 mmol/L (98-107); CREATININE 1.74 mg/dL (0.55-1.30); GLUCOSE 100 mg/dL (70-99); SODIUM SERUM 137 mmol/L (136-145); UREA NITROGEN, BLOOD 34 mg/dL (8-21)
[2018-11-05 08:00] VITALS: BP_SYST 135
[2018-11-05] MEDS: METHYLPHENIDATE HCL 10 MG TABLET PO SCH ×2 (09:43→13:10)
[2018-11-05] MEDS: Effexor 37.5 MG TAB PO SCH ×2 (09:43→20:31)
[2018-11-05] MEDS: cefTRIAXone 1 GM IVPB PREMIX 50 ML IV SCH (09:43)
[2018-11-05] MEDS: DRONABINOL 2.5 MG CAPSULE PO SCH ×2 (09:43→20:31)
[2018-11-05] MEDS: TAMSULOSIN HCL 0.4 MG CAP PO SCH (09:46)
[2018-11-05] MEDS: FINASTERIDE 5 MG TABLET (PROSCAR) PO SCH (09:46)
[2018-11-05] MEDS: buPROPion HCL 150 MG XL TAB PO SCH (09:46)
[2018-11-05] MEDS: amLODIPine BESYLATE 5 MG TABLET PO SCH (09:47)
[2018-11-05 12:57] VITALS: BP_SYST 108
[2018-11-05 16:47] VITALS: BP_SYST 105
[2018-11-05 20:00] VITALS: BP_SYST 102
[2018-11-05 21:04] LABS: BASOPHILS # (AUTO) 0.1 K/uL (0.0-0.2); BASOPHILS % (AUTO) 0.9 % (0.0-2.0); EOSINOPHILS # (AUTO) 0.1 K/uL (0.0-0.4); EOSINOPHILS % (AUTO) 1.4 % (0.0-4.0); HEMATOCRIT 24.2 % (36-54); LYMPHOCYTES # (AUTO) 0.8 K/uL (1.0-5.5); LYMPHOCYTES % (AUTO) 10.5 % (20.5-51.5); MEAN CORPUSCULAR HEMOGLOBIN 29 pg (27-31); MEAN CORPUSCULAR HGB CONC 33 % (32-36); MEAN CORPUSCULAR VOLUME 86 fL (79.0-98.0); MONOCYTES # (AUTO) 0.9 K/uL (0.0-1.0); MONOCYTES % (AUTO) 12.3 % (1.7-9.3); NEUTROPHILS # (AUTO) 5.8 K/uL (1.8-7.7); NEUTROPHILS % (AUTO) 74.9 % (40.0-70.0); PLATELET COUNT (AUTO) 253 K/uL (130-430); RED BLOOD CELL COUNT(AUTO) 2.81 MIL/uL (4.2-6.2); RED CELL DISTRIBUTION WIDTH 15.4 % (9.0-15.0); WHITE BLOOD COUNT (AUTO) 7.7 K/uL (4.8-10.8)
[2018-11-06] MEDS: NACL 0.9% 1,000 ML IV SCH ×3 (03:37→22:24)
[2018-11-06 03:51] VITALS: BP_SYST 98
[2018-11-06] MEDS: LORazepam 2 MG/ML VIAL IVP PRN (03:58)
[2018-11-06 06:00] LABS: ANION GAP 10 (5-15); CALCIUM 8.7 mg/dL (8.4-11.0); CHLORIDE 109 mmol/L (98-107); CREATININE 1.62 mg/dL (0.55-1.30); GLUCOSE 92 mg/dL (70-99); POTASSIUM 3.7 mmol/L (3.5-5.1); SODIUM SERUM 140 mmol/L (136-145); UREA NITROGEN, BLOOD 31 mg/dL (8-21)
[2018-11-06 06:16] LABS: BASOPHILS # (AUTO) 0.1 K/uL (0.0-0.2); BASOPHILS % (AUTO) 0.7 % (0.0-2.0); EOSINOPHILS # (AUTO) 0.1 K/uL (0.0-0.4); EOSINOPHILS % (AUTO) 2.1 % (0.0-4.0); HEMATOCRIT 23.8 % (36-54); HEMOGLOBIN 7.8 g/dL (14.0-18.0); LYMPHOCYTES # (AUTO) 0.9 K/uL (1.0-5.5); LYMPHOCYTES % (AUTO) 12.4 % (20.5-51.5); MEAN CORPUSCULAR HEMOGLOBIN 28 pg (27-31); MEAN CORPUSCULAR HGB CONC 33 % (32-36); MEAN CORPUSCULAR VOLUME 87 fL (79.0-98.0); MONOCYTES # (AUTO) 0.9 K/uL (0.0-1.0); MONOCYTES % (AUTO) 12.6 % (1.7-9.3); NEUTROPHILS # (AUTO) 5.1 K/uL (1.8-7.7); NEUTROPHILS % (AUTO) 72.2 % (40.0-70.0); PLATELET COUNT (AUTO) 244 K/uL (130-430); RED BLOOD CELL COUNT(AUTO) 2.75 MIL/uL (4.2-6.2); RED CELL DISTRIBUTION WIDTH 15.4 % (9.0-15.0); WHITE BLOOD COUNT (AUTO) 7.1 K/uL (4.8-10.8)
[2018-11-06 08:00] VITALS: BP_SYST 111
[2018-11-06] MEDS: METHYLPHENIDATE HCL 10 MG TABLET PO SCH ×2 (08:00→12:32)
[2018-11-06] MEDS: cefTRIAXone 1 GM IVPB PREMIX 50 ML IV SCH (08:44)
[2018-11-06] MEDS: amLODIPine BESYLATE 5 MG TABLET PO SCH ×2 (09:00→09:59)
[2018-11-06] MEDS ORDERED: MUPIROCIN NASAL 2% OINT. NS SCH (09:00)
[2018-11-06] MEDS: DRONABINOL 2.5 MG CAPSULE PO SCH ×3 (09:00→22:23)
[2018-11-06] MEDS: MUPIROCIN 2% TOPICAL OINTMENT 22 GM NS SCH ×2 (09:58→22:23)
[2018-11-06] MEDS: FINASTERIDE 5 MG TABLET (PROSCAR) PO SCH (10:07)
[2018-11-06] MEDS: Effexor 37.5 MG TAB PO SCH ×2 (10:07→22:23)
[2018-11-06] MEDS: buPROPion HCL 150 MG XL TAB PO SCH (10:07)
[2018-11-06] MEDS: TAMSULOSIN HCL 0.4 MG CAP PO SCH (10:07)
[2018-11-06] MEDS: FLUCONAZOLE 200 MG TABLET (DIFLUCAN) PO SCH (10:08)
[2018-11-06 12:56] VITALS: BP_SYST 118
[2018-11-06 13:12] LABS: BASOPHILS # (AUTO) 0.1 K/uL (0.0-0.2); EOSINOPHILS # (AUTO) 0.2 K/uL (0.0-0.4); EOSINOPHILS % (AUTO) 2.1 % (0.0-4.0); HEMATOCRIT 23.8 % (36-54); HEMOGLOBIN 7.9 g/dL (14.0-18.0); LYMPHOCYTES # (AUTO) 0.8 K/uL (1.0-5.5); LYMPHOCYTES % (AUTO) 8.9 % (20.5-51.5); MEAN CORPUSCULAR HEMOGLOBIN 28 pg (27-31); MEAN CORPUSCULAR HGB CONC 33 % (32-36); MEAN CORPUSCULAR VOLUME 86 fL (79.0-98.0); MONOCYTES % (AUTO) 12.1 % (1.7-9.3); NEUTROPHILS # (AUTO) 6.5 K/uL (1.8-7.7); NEUTROPHILS % (AUTO) 75.9 % (40.0-70.0); PLATELET COUNT (AUTO) 251 K/uL (130-430); RED BLOOD CELL COUNT(AUTO) 2.76 MIL/uL (4.2-6.2); RED CELL DISTRIBUTION WIDTH 15.6 % (9.0-15.0); WHITE BLOOD COUNT (AUTO) 8.6 K/uL (4.8-10.8)
[2018-11-06 17:27] VITALS: BP_SYST 140
[2018-11-06 20:34] VITALS: BP_SYST 142
[2018-11-07 01:32] VITALS: BP_SYST 148
[2018-11-07 06:51] LABS: BASOPHILS # (AUTO) 0.1 K/uL (0.0-0.2); BASOPHILS % (AUTO) 1.1 % (0.0-2.0); EOSINOPHILS # (AUTO) 0.3 K/uL (0.0-0.4); EOSINOPHILS % (AUTO) 4.3 % (0.0-4.0); HEMOGLOBIN 8.1 g/dL (14.0-18.0); LYMPHOCYTES # (AUTO) 0.7 K/uL (1.0-5.5); LYMPHOCYTES % (AUTO) 8.8 % (20.5-51.5); MEAN CORPUSCULAR HEMOGLOBIN 28 pg (27-31); MEAN CORPUSCULAR HGB CONC 33 % (32-36); MEAN CORPUSCULAR VOLUME 87 fL (79.0-98.0); MONOCYTES # (AUTO) 0.8 K/uL (0.0-1.0); MONOCYTES % (AUTO) 10.5 % (1.7-9.3); NEUTROPHILS # (AUTO) 5.6 K/uL (1.8-7.7); NEUTROPHILS % (AUTO) 75.3 % (40.0-70.0); PLATELET COUNT (AUTO) 269 K/uL (130-430); RED BLOOD CELL COUNT(AUTO) 2.89 MIL/uL (4.2-6.2); RED CELL DISTRIBUTION WIDTH 15.8 % (9.0-15.0); WHITE BLOOD COUNT (AUTO) 7.5 K/uL (4.8-10.8)
[2018-11-07 07:04] LABS: INR 0.9 (0.80-1.20); PROTHROMBIN TIME 9.4 SECS (9.5-12.5)
[2018-11-07 07:26] LABS: ALANINE AMINOTRANSFERASE 18 U/L (12-78); ALBUMIN 2.6 g/dL (3.4-4.8); ANION GAP 11 (5-15); ASPARTATE AMINOTRANSFERASE 32 U/L (10-37); CALCIUM 8.9 mg/dL (8.4-11.0); CHLORIDE 108 mmol/L (98-107); CREATININE 1.11 mg/dL (0.55-1.30); GLUCOSE 78 mg/dL (70-99); POTASSIUM 3.7 mmol/L (3.5-5.1); SODIUM SERUM 140 mmol/L (136-145); THYROID STIMULATING HORMONE 0.84 uIu/mL (0.34-4.82); TOTAL BILIRUBIN 0.3 mg/dL (0.0-1.0); UREA NITROGEN, BLOOD 18 mg/dL (8-21)
[2018-11-07 08:00] VITALS: BP_SYST 164
[2018-11-07] MEDS: MUPIROCIN 2% TOPICAL OINTMENT 22 GM NS SCH ×2 (08:06→21:18)
[2018-11-07] MEDS: cefTRIAXone 1 GM IVPB PREMIX 50 ML IV SCH (08:06)
[2018-11-07] MEDS: TAMSULOSIN HCL 0.4 MG CAP PO SCH (08:06)
[2018-11-07] MEDS: FLUCONAZOLE 200 MG TABLET (DIFLUCAN) PO SCH (08:06)
[2018-11-07] MEDS: METHYLPHENIDATE HCL 10 MG TABLET PO SCH ×2 (08:06→11:23)
[2018-11-07] MEDS: DRONABINOL 2.5 MG CAPSULE PO SCH ×2 (08:06→21:18)
[2018-11-07] MEDS: Effexor 37.5 MG TAB PO SCH ×2 (08:07→21:18)
[2018-11-07] MEDS: buPROPion HCL 150 MG XL TAB PO SCH (08:07)
[2018-11-07] MEDS: amLODIPine BESYLATE 5 MG TABLET PO SCH (08:07)
[2018-11-07] MEDS: FINASTERIDE 5 MG TABLET (PROSCAR) PO SCH (08:07)
[2018-11-07] MEDS: NACL 0.9% 1,000 ML IV SCH (11:26)
[2018-11-07 12:01] VITALS: BP_SYST 127
[2018-11-07 16:14] VITALS: BP_SYST 132
[2018-11-07] MEDS: LORazepam 2 MG/ML VIAL IVP PRN (18:57)
[2018-11-07 19:46] VITALS: BP_SYST 134
[2018-11-07] MEDS: ONDANSETRON HCL 4 MG/2 ML VIAL IVP PRN (22:59)
[2018-11-07] MEDS: MORPHINE 2 MG/ML INJ. SYRINGE IVP PRN (23:00)
[2018-11-08] VITALS (7 sets, daily range): BP systolic 108–156
[2018-11-08 06:30] LABS: ANION GAP 7 (5-15); CALCIUM 8.4 mg/dL (8.4-11.0); CHLORIDE 111 mmol/L (98-107); CREATININE 1.13 mg/dL (0.55-1.30); GLUCOSE 86 mg/dL (70-99); POTASSIUM 3.5 mmol/L (3.5-5.1); SODIUM SERUM 140 mmol/L (136-145); UREA NITROGEN, BLOOD 16 mg/dL (8-21)
[2018-11-08 06:47] LABS: BASOPHILS % (AUTO) 0.7 % (0.0-2.0); EOSINOPHILS # (AUTO) 0.3 K/uL (0.0-0.4); EOSINOPHILS % (AUTO) 4.2 % (0.0-4.0); LYMPHOCYTES # (AUTO) 0.7 K/uL (1.0-5.5); LYMPHOCYTES % (AUTO) 11.4 % (20.5-51.5); MEAN CORPUSCULAR HEMOGLOBIN 29 pg (27-31); MEAN CORPUSCULAR HGB CONC 33 % (32-36); MEAN CORPUSCULAR VOLUME 88 fL (79.0-98.0); MONOCYTES # (AUTO) 0.9 K/uL (0.0-1.0); MONOCYTES % (AUTO) 13.8 % (1.7-9.3); NEUTROPHILS # (AUTO) 4.4 K/uL (1.8-7.7); NEUTROPHILS % (AUTO) 69.9 % (40.0-70.0); PLATELET COUNT (AUTO) 231 K/uL (130-430); RED BLOOD CELL COUNT(AUTO) 2.28 MIL/uL (4.2-6.2); RED CELL DISTRIBUTION WIDTH 15.5 % (9.0-15.0); WHITE BLOOD COUNT (AUTO) 6.2 K/uL (4.8-10.8)
[2018-11-08 07:20] LABS: HEMATOCRIT 19.9 % (36-54); HEMOGLOBIN 6.5 g/dL (14.0-18.0)
[2018-11-08] MEDS: DRONABINOL 2.5 MG CAPSULE PO SCH ×2 (08:10→20:42)
[2018-11-08] MEDS: Effexor 37.5 MG TAB PO SCH ×2 (08:11→21:00)
[2018-11-08] MEDS: buPROPion HCL 150 MG XL TAB PO SCH (08:11)
[2018-11-08] MEDS: amLODIPine BESYLATE 5 MG TABLET PO SCH (08:11)
[2018-11-08] MEDS: TAMSULOSIN HCL 0.4 MG CAP PO SCH (08:11)
[2018-11-08] MEDS: METHYLPHENIDATE HCL 10 MG TABLET PO SCH ×2 (08:11→11:59)
[2018-11-08] MEDS: FINASTERIDE 5 MG TABLET (PROSCAR) PO SCH (08:11)
[2018-11-08] MEDS: FLUCONAZOLE 200 MG TABLET (DIFLUCAN) PO SCH (08:11)
[2018-11-08] MEDS: cefTRIAXone 1 GM IVPB PREMIX 50 ML IV SCH (08:12)
[2018-11-08] MEDS: MUPIROCIN 2% TOPICAL OINTMENT 22 GM NS SCH ×2 (09:00→20:42)
[2018-11-08] MEDS: NACL 0.9% 1,000 ML IV SCH (11:06)
[2018-11-08 17:10] LABS: BASOPHILS % (AUTO) 0.5 % (0.0-2.0); EOSINOPHILS # (AUTO) 0.3 K/uL (0.0-0.4); EOSINOPHILS % (AUTO) 4.1 % (0.0-4.0); HEMATOCRIT 22.3 % (36-54); HEMOGLOBIN 7.3 g/dL (14.0-18.0); LYMPHOCYTES # (AUTO) 0.6 K/uL (1.0-5.5); LYMPHOCYTES % (AUTO) 9.9 % (20.5-51.5); MEAN CORPUSCULAR HEMOGLOBIN 29 pg (27-31); MEAN CORPUSCULAR HGB CONC 33 % (32-36); MEAN CORPUSCULAR VOLUME 89 fL (79.0-98.0); MONOCYTES # (AUTO) 0.8 K/uL (0.0-1.0); MONOCYTES % (AUTO) 12.9 % (1.7-9.3); NEUTROPHILS # (AUTO) 4.5 K/uL (1.8-7.7); NEUTROPHILS % (AUTO) 72.6 % (40.0-70.0); PLATELET COUNT (AUTO) 248 K/uL (130-430); RED CELL DISTRIBUTION WIDTH 16.2 % (9.0-15.0); WHITE BLOOD COUNT (AUTO) 6.1 K/uL (4.8-10.8)
[2018-11-09] VITALS (7 sets, daily range): BP systolic 150–179
[2018-11-09] MEDS: NACL 0.9% 1,000 ML IV SCH ×2 (02:09→18:41)
[2018-11-09 06:59] LABS: BASOPHILS # (AUTO) 0.1 K/uL (0.0-0.2); BASOPHILS % (AUTO) 0.8 % (0.0-2.0); EOSINOPHILS # (AUTO) 0.3 K/uL (0.0-0.4); EOSINOPHILS % (AUTO) 4.2 % (0.0-4.0); HEMATOCRIT 25.7 % (36-54); HEMOGLOBIN 8.5 g/dL (14.0-18.0); LYMPHOCYTES # (AUTO) 0.7 K/uL (1.0-5.5); LYMPHOCYTES % (AUTO) 10.9 % (20.5-51.5); MEAN CORPUSCULAR HEMOGLOBIN 29 pg (27-31); MEAN CORPUSCULAR HGB CONC 33 % (32-36); MEAN CORPUSCULAR VOLUME 89 fL (79.0-98.0); MONOCYTES # (AUTO) 0.9 K/uL (0.0-1.0); NEUTROPHILS # (AUTO) 4.8 K/uL (1.8-7.7); NEUTROPHILS % (AUTO) 71.1 % (40.0-70.0); PLATELET COUNT (AUTO) 246 K/uL (130-430); RED BLOOD CELL COUNT(AUTO) 2.89 MIL/uL (4.2-6.2); RED CELL DISTRIBUTION WIDTH 15.8 % (9.0-15.0); WHITE BLOOD COUNT (AUTO) 6.7 K/uL (4.8-10.8)
[2018-11-09 07:04] LABS: ANION GAP 9 (5-15); CALCIUM 8.5 mg/dL (8.4-11.0); CHLORIDE 109 mmol/L (98-107); CREATININE 1.05 mg/dL (0.55-1.30); GLUCOSE 80 mg/dL (70-99); POTASSIUM 3.6 mmol/L (3.5-5.1); SODIUM SERUM 142 mmol/L (136-145); UREA NITROGEN, BLOOD 14 mg/dL (8-21)
[2018-11-09] MEDS: METHYLPHENIDATE HCL 10 MG TABLET PO SCH ×2 (08:00→11:53)
[2018-11-09] MEDS: buPROPion HCL 150 MG XL TAB PO SCH (09:00)
[2018-11-09] MEDS: TAMSULOSIN HCL 0.4 MG CAP PO SCH (09:00)
[2018-11-09] MEDS: DRONABINOL 2.5 MG CAPSULE PO SCH ×2 (09:00→20:45)
[2018-11-09] MEDS: FINASTERIDE 5 MG TABLET (PROSCAR) PO SCH (09:00)
[2018-11-09] MEDS: Effexor 37.5 MG TAB PO SCH ×2 (09:00→21:06)
[2018-11-09] MEDS: FLUCONAZOLE 200 MG TABLET (DIFLUCAN) PO SCH (09:00)
[2018-11-09] MEDS: cefTRIAXone 1 GM IVPB PREMIX 50 ML IV SCH (09:51)
[2018-11-09] MEDS: amLODIPine BESYLATE 5 MG TABLET PO SCH (09:52)
[2018-11-09] MEDS: MUPIROCIN 2% TOPICAL OINTMENT 22 GM NS SCH ×2 (09:58→20:47)
[2018-11-09] MEDS: LORazepam 2 MG/ML VIAL IVP PRN (12:44)
[2018-11-09] MEDS ORDERED: BUPIVACAINE /DEX PF 0.75% SPINAL 2 ML AMP INJ ONE (22:13)
[2018-11-09] MEDS ORDERED: NS IRRIG SOLN 5000 ML IR ONE (22:13)
[2018-11-09] MEDS ORDERED: WATER FOR IRRIGATION,STERILE 3,000 ML IRRIG.SOLN IR ONE (22:13)
[2018-11-09] MEDS ORDERED: cefTRIAXone 1 GM IVPB PREMIX 50 ML IV ONE (22:13)
[2018-11-09] MEDS ORDERED: LR 1,000 ML IV.SOLN IV ONE (22:13)
[2018-11-09] MEDS ORDERED: fentaNYL CITRATE/PF 100 MCG/2 ML AMP IVP PRN ×2 (23:30)
[2018-11-09] MEDS ORDERED: ONDANSETRON HCL 4 MG/2 ML VIAL IVP PRN (23:30)
[2018-11-10 01:22] LABS: BASOPHILS % (AUTO) 0.6 % (0.0-2.0); EOSINOPHILS # (AUTO) 0.2 K/uL (0.0-0.4); EOSINOPHILS % (AUTO) 2.6 % (0.0-4.0); HEMATOCRIT 27.3 % (36-54); HEMOGLOBIN 9.1 g/dL (14.0-18.0); LYMPHOCYTES # (AUTO) 0.5 K/uL (1.0-5.5); LYMPHOCYTES % (AUTO) 7.2 % (20.5-51.5); MEAN CORPUSCULAR HEMOGLOBIN 30 pg (27-31); MEAN CORPUSCULAR HGB CONC 33 % (32-36); MEAN CORPUSCULAR VOLUME 90 fL (79.0-98.0); MONOCYTES # (AUTO) 0.7 K/uL (0.0-1.0); MONOCYTES % (AUTO) 10.4 % (1.7-9.3); NEUTROPHILS # (AUTO) 5.3 K/uL (1.8-7.7); NEUTROPHILS % (AUTO) 79.2 % (40.0-70.0); PLATELET COUNT (AUTO) 231 K/uL (130-430); RED BLOOD CELL COUNT(AUTO) 3.03 MIL/uL (4.2-6.2); RED CELL DISTRIBUTION WIDTH 16.1 % (9.0-15.0); WHITE BLOOD COUNT (AUTO) 6.7 K/uL (4.8-10.8)
[2018-11-10 01:42] LABS: ANION GAP 12 (5-15); CHLORIDE 106 mmol/L (98-107); CREATININE 1.08 mg/dL (0.55-1.30); GLUCOSE 116 mg/dL (70-99); POTASSIUM 3.4 mmol/L (3.5-5.1); SODIUM SERUM 142 mmol/L (136-145); UREA NITROGEN, BLOOD 12 mg/dL (8-21)
[2018-11-10 01:45] LABS: PHOSPHORUS 3.6 mg/dL (2.7-4.5)
[2018-11-10] MEDS: NACL 0.9% 1,000 ML IV SCH ×2 (05:27→12:42)
[2018-11-10 08:30] VITALS: BP_SYST 149
[2018-11-10] MEDS: METHYLPHENIDATE HCL 10 MG TABLET PO SCH ×2 (09:27→12:42)
[2018-11-10] MEDS: FLUCONAZOLE 200 MG TABLET (DIFLUCAN) PO SCH (09:27)
[2018-11-10] MEDS: DRONABINOL 2.5 MG CAPSULE PO SCH ×2 (09:27→22:08)
[2018-11-10] MEDS: FINASTERIDE 5 MG TABLET (PROSCAR) PO SCH (09:27)
[2018-11-10] MEDS: Effexor 37.5 MG TAB PO SCH ×2 (09:27→22:08)
[2018-11-10] MEDS: buPROPion HCL 150 MG XL TAB PO SCH (09:27)
[2018-11-10] MEDS: cefTRIAXone 1 GM IVPB PREMIX 50 ML IV SCH (09:28)
[2018-11-10] MEDS: TAMSULOSIN HCL 0.4 MG CAP PO SCH (09:28)
[2018-11-10] MEDS: amLODIPine BESYLATE 5 MG TABLET PO SCH (09:28)
[2018-11-10] MEDS: MUPIROCIN 2% TOPICAL OINTMENT 22 GM NS SCH ×2 (09:29→22:11)
[2018-11-10] MEDS: MORPHINE 2 MG/ML INJ. SYRINGE IVP PRN ×2 (09:30→22:09)
[2018-11-10 14:49] VITALS: BP_SYST 141
[2018-11-10 17:29] VITALS: BP_SYST 142
[2018-11-10 19:15] VITALS: BP_SYST 128
[2018-11-10] MEDS: DOCUSATE SODIUM 100 MG CAPSULE PO PRN (22:08)
[2018-11-10] MEDS: ONDANSETRON HCL 4 MG/2 ML VIAL IVP PRN (22:08)
[2018-11-11 02:32] VITALS: BP_SYST 146
[2018-11-11 08:00] VITALS: BP_SYST 146
[2018-11-11] MEDS: METHYLPHENIDATE HCL 10 MG TABLET PO SCH ×2 (08:21→12:34)
[2018-11-11] MEDS: TAMSULOSIN HCL 0.4 MG CAP PO SCH (08:21)
[2018-11-11] MEDS: buPROPion HCL 150 MG XL TAB PO SCH (08:22)
[2018-11-11] MEDS: amLODIPine BESYLATE 5 MG TABLET PO SCH (08:22)
[2018-11-11] MEDS: FLUCONAZOLE 200 MG TABLET (DIFLUCAN) PO SCH (08:22)
[2018-11-11] MEDS: Effexor 37.5 MG TAB PO SCH ×2 (08:23→20:10)
[2018-11-11] MEDS: DRONABINOL 2.5 MG CAPSULE PO SCH ×2 (08:23→20:10)
[2018-11-11] MEDS: FINASTERIDE 5 MG TABLET (PROSCAR) PO SCH (08:23)
[2018-11-11] MEDS: MUPIROCIN 2% TOPICAL OINTMENT 22 GM NS SCH ×2 (08:24→20:10)
[2018-11-11 12:00] VITALS: BP_SYST 152
[2018-11-11] MEDS: NACL 0.9% 1,000 ML IV SCH (12:28)
[2018-11-11] MEDS: MORPHINE 2 MG/ML INJ. SYRINGE IVP PRN (14:09)
[2018-11-11 16:00] VITALS: BP_SYST 147
[2018-11-11 20:00] VITALS: BP_SYST 153
[2018-11-11 23:57] VITALS: BP_SYST 152
[2018-11-12] MEDS: MORPHINE 2 MG/ML INJ. SYRINGE IVP PRN (01:21)
[2018-11-12] MEDS: NACL 0.9% 1,000 ML IV SCH (01:22)
[2018-11-12] MEDS: DOCUSATE SODIUM 100 MG CAPSULE PO PRN (01:23)
[2018-11-12 08:00] VITALS: BP_SYST 174
[2018-11-12] MEDS: DRONABINOL 2.5 MG CAPSULE PO SCH (08:56)
[2018-11-12] MEDS: buPROPion HCL 150 MG XL TAB PO SCH (08:57)
[2018-11-12] MEDS: FLUCONAZOLE 200 MG TABLET (DIFLUCAN) PO SCH (08:57)
[2018-11-12] MEDS: FINASTERIDE 5 MG TABLET (PROSCAR) PO SCH (08:57)
[2018-11-12] MEDS: TAMSULOSIN HCL 0.4 MG CAP PO SCH (08:57)
[2018-11-12] MEDS: METHYLPHENIDATE HCL 10 MG TABLET PO SCH ×2 (08:57→11:23)
[2018-11-12] MEDS: Effexor 37.5 MG TAB PO SCH (08:58)
[2018-11-12] MEDS: amLODIPine BESYLATE 5 MG TABLET PO SCH (08:58)
[2018-11-12] MEDS: MUPIROCIN 2% TOPICAL OINTMENT 22 GM NS SCH (08:58)
[2018-11-12 09:19] LABS: BASOPHILS # (AUTO) 0.1 K/uL (0.0-0.2); BASOPHILS % (AUTO) 0.7 % (0.0-2.0); EOSINOPHILS # (AUTO) 0.4 K/uL (0.0-0.4); HEMATOCRIT 31.6 % (36-54); HEMOGLOBIN 10.3 g/dL (14.0-18.0); LYMPHOCYTES # (AUTO) 0.5 K/uL (1.0-5.5); LYMPHOCYTES % (AUTO) 6.4 % (20.5-51.5); MEAN CORPUSCULAR HEMOGLOBIN 29 pg (27-31); MEAN CORPUSCULAR HGB CONC 33 % (32-36); MEAN CORPUSCULAR VOLUME 89 fL (79.0-98.0); MONOCYTES # (AUTO) 0.9 K/uL (0.0-1.0); MONOCYTES % (AUTO) 11.4 % (1.7-9.3); NEUTROPHILS # (AUTO) 5.9 K/uL (1.8-7.7); NEUTROPHILS % (AUTO) 76.5 % (40.0-70.0); PLATELET COUNT (AUTO) 315 K/uL (130-430); RED BLOOD CELL COUNT(AUTO) 3.53 MIL/uL (4.2-6.2); RED CELL DISTRIBUTION WIDTH 15.9 % (9.0-15.0); WHITE BLOOD COUNT (AUTO) 7.8 K/uL (4.8-10.8)
[2018-11-12 12:23] VITALS: BP_SYST 152
[2018-11-12 12:28] VITALS: BP_SYST 142
== END 2018-11-12 14:19 | disposition home health service (06) | DRG 668 ==
LOC: SED 20:45 → SMU 11-04 01:16 → STU 11-10 08:02 → SMU 11-10 12:14
PROVIDERS: ADMIT General Practice; ATTEND General Practice
PROC: 30233N1 Transfusion of Nonautologous Red Blood Cells into Peripheral Vein, Percutaneous Approach (ICD-10-PCS; 2018-11-05)
PROC: 0T9B8ZZ Drainage of Bladder, Via Natural or Artificial Opening Endoscopic (ICD-10-PCS; principal; 2018-11-10)
PROC: 0TBB8ZX Excision of Bladder, Via Natural or Artificial Opening Endoscopic, Diagnostic (ICD-10-PCS; 2018-11-10)
DX: C67.9 Malignant neoplasm of bladder, unspecified (principal); N17.0 Acute kidney failure with tubular necrosis; G93.41 Metabolic encephalopathy; N39.0 Urinary tract infection, site not specified; N13.8 Other obstructive and reflux uropathy; D62 Acute posthemorrhagic anemia; N12 Tubulo-interstitial nephritis, not specified as acute or chronic; N13.30 Unspecified hydronephrosis; R33.9 Retention of urine, unspecified; G20 Parkinson's disease; F32.9 Major depressive disorder, single episode, unspecified; K21.9 Gastro-esophageal reflux disease without esophagitis; M19.90 Unspecified osteoarthritis, unspecified site; F41.9 Anxiety disorder, unspecified; Z96.653 Presence of artificial knee joint, bilateral; N42.9 Disorder of prostate, unspecified; N18.9 Chronic kidney disease, unspecified; I12.9 Hypertensive chronic kidney disease with stage 1 through stage 4 chronic kidney disease, or unspecified chronic kidney disease; F02.80 Dementia in other diseases classified elsewhere, unspecified severity, without behavioral disturbance, psychotic disturbance, mood disturbance, and anxiety; Z96.649 Presence of unspecified artificial hip joint; N40.1 Benign prostatic hyperplasia with lower urinary tract symptoms; R33.8 Other retention of urine; D64.9 Anemia, unspecified; Z85.51 Personal history of malignant neoplasm of bladder; Z87.891 Personal history of nicotine dependence; Z74.01 Bed confinement status; Z85.820 Personal history of malignant melanoma of skin; Z87.440 Personal history of urinary (tract) infections; Z92.21 Personal history of antineoplastic chemotherapy
CPT/HCPCS: 36415; 71045; 76857; 80048; 80053; 81000-TC; 83036; 83051; 83735-TC; 83880; 84100-TC; 84443-TC; 85014-TC; 85025; 85048; 85049-TC; 85610-TC; 86886; 86900; 86901; 86920; 87081; 87086; 88307; 93005; 93306; 96374; 97110-GP; 97530-GP; 99285; J0696; J1885; J2060; J2270; J2405; J3490; J7030; J7050; J7120; P9021; Q0167

== ENCOUNTER 2018-11-20 21:24 | Emergency (ER) | payer OTHER ==
[~2018-11-20] VITALS: Ht 185.4 cm; Wt 79.4 kg
--- NOTE | 2018-11-20 21:50 | NUR ---
Pt BIB BLS, placed to ER hallway in stable condition pending bed placement.
[2018-11-20 22:00] VITALS: BP_SYST 166
--- NOTE | 2018-11-20 22:22 | NUR ---
Pt c/o pain in lower abdomin and penis 01/01. Mayer catheter present, urine tea color. Bladder Tumor removed approx 1 month ago.
--- NOTE | 2018-11-20 22:55 | NUR ---
ER at bedside examining patient.
--- NOTE | 2018-11-21 00:10 | NUR ---
# 16 FR Neri catheter with use of sterile technique. Immediate return of 30 cc light tea color urine noted. Bedside drainage bag placed below level of bladder. Urine sample collected and sent to lab. Pt tolerated procedure well. Patient arrived with neri in place, changed due to standard of practice. Patient unable to toilet self.
[2018-11-21 00:31] LABS: BILIRUBIN,URINE NEGATIVE (NEGATIVE); BLOOD, URINE 3+ (NEGATIVE); CLARITY/URINE HAZY (CLEAR); COLOR,URINE ORANGE (YELLOW); GLUCOSE,URINE NEGATIVE (NEGATIVE); KETONES,URINE NEGATIVE (NEGATIVE); LEUKOCYTE ESTERASE ,URINE 2+ (NEGATIVE); NITRITE, URINE POSITIVE (NEGATIVE); PH,URINE 5.5 (5.0-8.0); PROTEIN URINE 2+ (NEGATIVE); UROBILINOGEN,URINE 0.2 (0.2-1.0)
[2018-11-21 00:45] LABS: BACTERIA,URINE MANY /HPF (None Seen); RBC,URINE 80-100 /HPF (0-3); WBC,URINE 20-50 /HPF (0-3); YEAST,URINE Few /HPF (None Seen)
[2018-11-21] MEDS ORDERED: HYDROcodone/ACETAMIN 5-325 MG TAB (NORCO/ VICODIN) PO ONE (01:00)
[2018-11-21 01:30] VITALS: BP_SYST 134
--- NOTE | 2018-11-21 01:30 | NUR ---
Patient given written and verbal discharge instructions and verbalizes understanding. ER MD discussed with patient the results and treatment provided. Patient in stable condition. ID arm band removed. Rx of Cipro P.O. given. Patient educated on pain management and to follow up with PMD. Pain Scale 5/10. [place] P.O. given Pt discharged before Pt could be evaluated. . Opportunity for questions provided and answered. Medication side effect fact sheet provided.
--- NOTE | 2018-11-21 01:30 | NUR ---
Pt discharge home via ambulance.
== END 2018-11-21 01:30 | disposition home or self-care (01) ==
LOC: SED 21:24
DX: R33.9 Retention of urine, unspecified (principal); N39.0 Urinary tract infection, site not specified; K21.9 Gastro-esophageal reflux disease without esophagitis; I10 Essential (primary) hypertension; Z86.79 Personal history of other diseases of the circulatory system; Z85.820 Personal history of malignant melanoma of skin; Z85.51 Personal history of malignant neoplasm of bladder; Z79.899 Other long term (current) drug therapy
CPT/HCPCS: 81000-TC; 87086; 87186-TC; 99284

== ENCOUNTER 2018-12-25 18:00 | Inpatient (IN) | payer OTHER ==
[~2018-12-25] VITALS: Ht 182.9 cm; Wt 70.3 kg
[2018-12-25 18:01] VITALS: BP_SYST 132
--- NOTE | 2018-12-25 18:22 | NUR ---
Placed in room 02 . Placed on short filler bunch machine operator, blood pressure machine and pulse oximeter. To gown for exam. Side rails up.
--- NOTE | 2018-12-25 18:40 | NUR ---
PT is from [facility]. PT is lethargic and unable to communicate. The PT's sister in law is at bedside. Per sister in law, he has been having stomach pains and have not been eating well for the last week. She came to visist him this morning and saw him lethargic and they decided to call 911. PT is lethargic but pulls from pain. PT vitals HR 87, 95/53, 100% O2, 19 resp, and 97.9 temp. No signs of acute distress.
--- NOTE | 2018-12-25 18:45 | NUR ---
ER Dr. Haji at bedside examining patient.
[2018-12-25 19:09] LABS: BASOPHILS % (AUTO) 0.3 % (0.0-2.0); EOSINOPHILS # (AUTO) 0.1 K/uL (0.0-0.4); EOSINOPHILS % (AUTO) 1.1 % (0.0-4.0); HEMATOCRIT 27.5 % (36-54); HEMOGLOBIN 8.9 g/dL (14.0-18.0); LYMPHOCYTES # (AUTO) 0.3 K/uL (1.0-5.5); LYMPHOCYTES % (AUTO) 3.5 % (20.5-51.5); MEAN CORPUSCULAR HEMOGLOBIN 27 pg (27-31); MEAN CORPUSCULAR HGB CONC 32 % (32-36); MEAN CORPUSCULAR VOLUME 85 fL (79.0-98.0); MONOCYTES # (AUTO) 0.9 K/uL (0.0-1.0); MONOCYTES % (AUTO) 8.6 % (1.7-9.3); NEUTROPHILS # (AUTO) 8.6 K/uL (1.8-7.7); NEUTROPHILS % (AUTO) 86.5 % (40.0-70.0); PLATELET COUNT (AUTO) 290 K/uL (130-430); RED BLOOD CELL COUNT(AUTO) 3.25 MIL/uL (4.2-6.2); RED CELL DISTRIBUTION WIDTH 18.3 % (9.0-15.0); WHITE BLOOD COUNT (AUTO) 9.9 K/uL (4.8-10.8)
[2018-12-25 19:22] LABS: INR 0.9 (0.80-1.20); PROTHROMBIN TIME 9.5 SECS (9.5-12.5)
[2018-12-25 19:25] LABS: ANION GAP 9 (5-15); CALCIUM 11.3 mg/dL (8.4-11.0); CHLORIDE 99 mmol/L (98-107); GLUCOSE 87 mg/dL (70-99); POTASSIUM 5.1 mmol/L (3.5-5.1); SODIUM SERUM 133 mmol/L (136-145); UREA NITROGEN, BLOOD 85 mg/dL (8-21)
[2018-12-25 19:30] LABS: ALANINE AMINOTRANSFERASE 9 U/L (12-78); ASPARTATE AMINOTRANSFERASE 22 U/L (10-37); TOTAL BILIRUBIN 0.4 mg/dL (0.0-1.0)
[2018-12-25] MEDS ORDERED: ONDA4TAB5 PO (19:59)
[2018-12-25] MEDS ORDERED: ACET325T53 PO (19:59)
[2018-12-25] MEDS ORDERED: SENN-234 PO (19:59)
[2018-12-25] MEDS ORDERED: POLY17PO4 PO (19:59)
[2018-12-25] MEDS ORDERED: DOCU50CA13 PO (19:59)
[2018-12-25] MEDS ORDERED: LACT10SO6 PO (19:59)
[2018-12-25] MEDS ORDERED: VENL75CA PO (19:59)
[2018-12-25] MEDS ORDERED: PEDI0.2517 PO (19:59)
[2018-12-25] MEDS ORDERED: PIPERACILLIN/TAZO 3.375 GM in NS 50 ML IV ONE (20:00)
--- NOTE | 2018-12-25 20:02 | NUR ---
Willard carballo in ED - 12/25/18 at 2003 by SHAHANA Medication reconciliation completed with information provided by patient. Any prior medication reconciliation on file was reviewed and corrected.
--- NOTE | 2018-12-25 20:04 | NUR ---
Medication reconciliation completed with information provided by patient. Any prior medication reconciliation on file was reviewed and corrected.
--- NOTE | 2018-12-25 20:04 | NUR ---
pt is full code. paperwork in chart.
[2018-12-25] MEDS ORDERED: NACL 0.9% 500 ML IV ONE (20:30)
--- NOTE | 2018-12-25 20:30 | NUR ---
Patient will be admitted to care of Dr. Mcmanus. Admitted to med surge tele unit. Will call for room. Belongings list completed. Summary report printed. Report will be given at bedside.
--- NOTE | 2018-12-25 20:32 | NUR ---
Willard carballo in ED - 12/25/18 at 2034 by [email or web address] Pts sister in law Laura states that pt is DNR however, pt's POA is his nephew. POA paperwork states pt is full code.
--- NOTE | 2018-12-25 20:32 | NUR ---
Pts sister in law Laura states that pt is DNR however, pt's POA is his nephew. POA paperwork states pt is full code. Till proper paperwork is provided, pt is full code.
[2018-12-25] MEDS ORDERED: PIPERACILLIN/TAZOBACTAM 3.375 GM/VIAL (ZOSYN) IV ONE (20:49)
--- NOTE | 2018-12-25 20:52 | NUR ---
Per ER MD, CT scan was ordered prior to pt being brought to the floor.
[2018-12-25 21:21] VITALS: BP_SYST 99
--- NOTE | 2018-12-25 21:21 | NUR ---
Transfer to [facility] via ACLS protocol. Licensed nurse present. IV present no signs or symptoms of infiltration.
--- NOTE | 2018-12-25 21:21 | NUR ---
ADMISSION NOTE Received patient from ER via vadim, received report from AMY MARISCAL. Patient admitted with diagnosis of ALOC, METAOLIC ENCEPHALOPATHY, PLEURAL EFFUSION, RENAL FAILURE. Patient oriented to hospital routine, call light, toileting and safety-patient verbalized understanding.
--- NOTE | 2018-12-25 21:31 | NUR ---
CONSULTATION CALLED/ PAGED Reason for Consultation: Acute Renal Disease Was consult called? Yes Person who was notified: Alexandra Consulting Physician: Dr. Ruvalcaba / Dr. Miner (On-Call Physician) Quotation Checker Phone #: Ordering Physician: Dr. Mcmanus
--- NOTE | 2018-12-25 22:00 | NUR ---
INITIAL NOTE AT INITIAL ASSESSMENT, PATIENT IS RESTING IN BED, STABLE, NO SIGNS OF RESPIRATORY DISTRESS. SISTER IS AT BEDSIDE. PLAN OF CARE IS COMMUNICATED WITH THE PATIENT AND HIS SISTER. PATIENT VERBALIZES NO PAIN. BED IS LOCKED, ALARMED, AND AT THE LOWEST LEVEL. FALL, SAFETY, AND ASPIRATION PRECAUTIONS WILL BE IN PLACE THROUGHOUT THE SHIFT.
[2018-12-25] MEDS: NACL 0.9% 1,000 ML IV SCH (22:06)
[2018-12-25] MEDS ORDERED: MORPHINE 2 MG/ML INJ. SYRINGE IVP PRN (22:30)
[2018-12-25] MEDS ORDERED: LORazepam 2 MG/ML VIAL IVP PRN (22:30)
[2018-12-25] MEDS ORDERED: ACETAMINOPHEN 650 MG SUPP.RECT RC PRN (22:30)
--- NOTE | 2018-12-25 22:49 | NUR ---
CONSULTATION CALLED/ PAGED Reason for Consultation: Obstructive Uropathy with Recurrent Bladder, ARF Was consult called? Yes Person who was notified: Alexandra Consulting Physician: Dr. Haji / Dr. Longo (On-Call Physician) Business Continuity Specialist Phone #: Ordering Physician: Dr. Mcmanus
[2018-12-26 00:30] VITALS: BP_SYST 111
[2018-12-26 01:56] VITALS: BP_SYST 111
[2018-12-26] MEDS: FAMOTIDINE PF 20 MG/2 ML VIAL IVP SCH ×2 (03:16→22:17)
[2018-12-26] MEDS: IPRATROPIUM/ALBUTEROL SULFATE 3 ML AMPUL.NEB (DUONEB) INH SCH ×4 (04:12→19:14)
[2018-12-26] MEDS ORDERED: PIPERACILLIN/TAZOBACTAM 2.25 GM VIAL IV ONE (05:40)
[2018-12-26] MEDS: PIPERACILLIN/TAZO 2.25G/DEX-IS 50 ML IV SCH ×3 (05:46→17:16)
[2018-12-26] MEDS: NACL 0.9% 1,000 ML IV SCH ×2 (05:47→09:22)
[2018-12-26 06:29] LABS: BILIRUBIN,URINE NEGATIVE (NEGATIVE); BLOOD, URINE 2+ (NEGATIVE); CLARITY/URINE HAZY (CLEAR); COLOR,URINE YELLOW (YELLOW); GLUCOSE,URINE NEGATIVE (NEGATIVE); KETONES,URINE NEGATIVE (NEGATIVE); LEUKOCYTE ESTERASE ,URINE 3+ (NEGATIVE); NITRITE, URINE POSITIVE (NEGATIVE); PH,URINE 5.5 (5.0-8.0); PROTEIN URINE 2+ (NEGATIVE); UROBILINOGEN,URINE 0.2 (0.2-1.0)
[2018-12-26 06:32] LABS: BASOPHILS % (AUTO) 0.2 % (0.0-2.0); EOSINOPHILS # (AUTO) 0.1 K/uL (0.0-0.4); EOSINOPHILS % (AUTO) 1.4 % (0.0-4.0); HEMATOCRIT 27.2 % (36-54); HEMOGLOBIN 8.7 g/dL (14.0-18.0); LYMPHOCYTES # (AUTO) 0.3 K/uL (1.0-5.5); LYMPHOCYTES % (AUTO) 3.2 % (20.5-51.5); MEAN CORPUSCULAR HEMOGLOBIN 27 pg (27-31); MEAN CORPUSCULAR HGB CONC 32 % (32-36); MEAN CORPUSCULAR VOLUME 85 fL (79.0-98.0); MONOCYTES # (AUTO) 0.9 K/uL (0.0-1.0); MONOCYTES % (AUTO) 9.8 % (1.7-9.3); NEUTROPHILS # (AUTO) 8.3 K/uL (1.8-7.7); NEUTROPHILS % (AUTO) 85.4 % (40.0-70.0); PLATELET COUNT (AUTO) 261 K/uL (130-430); RED CELL DISTRIBUTION WIDTH 17.7 % (9.0-15.0); WHITE BLOOD COUNT (AUTO) 9.7 K/uL (4.8-10.8)
--- NOTE | 2018-12-26 06:55 | NUR ---
CLOSING NOTE PATIENT SLEPT WELL THROUGHOUT THE NIGHT, HE VERBALIZED PAIN BUT SAID NO TO PAIN MEDICATION OFFERED. HE IS STABLE, NO SIGNS OF RESPIRATORY DISTRESS. CALL LIGHT IS WITHIN REACH. BED IS LOCKED, ALARMED, AND AT THE LOWEST LEVEL. FALL AND SAFETY PRECAUTIONS HAVE BEEN TAKEN THROUGHOUT THE SHIFT. WILL CONTINUE TO MONITOR UNTIL SHIFT REPORT IS GIVEN AT BEDSIDE TO AM NURSE.
[2018-12-26 07:06] LABS: BACTERIA,URINE MODERATE /HPF (None Seen); WBC,URINE 20-50 /HPF (0-3); YEAST,URINE Few /HPF (None Seen)
[2018-12-26 07:07] LABS: MUCUS,URINE None Seen /LPF (None Seen)
[2018-12-26 07:13] LABS: ALANINE AMINOTRANSFERASE 8 U/L (12-78); ALBUMIN 1.8 g/dL (3.4-4.8); ANION GAP 6 (5-15); ASPARTATE AMINOTRANSFERASE 22 U/L (10-37); CALCIUM 10.8 mg/dL (8.4-11.0); CHLORIDE 102 mmol/L (98-107); CREATININE 3.35 mg/dL (0.55-1.30); GLUCOSE 76 mg/dL (70-99); POTASSIUM 4.7 mmol/L (3.5-5.1); SODIUM SERUM 133 mmol/L (136-145); TOTAL BILIRUBIN 0.4 mg/dL (0.0-1.0); UREA NITROGEN, BLOOD 80 mg/dL (8-21)
[2018-12-26 08:00] VITALS: BP_SYST 112
--- NOTE | 2018-12-26 08:00 | NUR ---
AM NOTES- IN BED, AWAKE CONFUSED. IN NO ACUTE DISTRESS. WANTS SOME WATER. MOUTH CARE DONE. HAS IVF INFUSING WELL. SANTO CATHETER DRAINING HENOK URINE. SAFETY PRECAUTION OBSERVED. BED ALARM ON. AFEBRILE, SINUS ON THE MONITOR. WILL CONTINUE TO MONITOR.
--- NOTE | 2018-12-26 09:43 | NUR ---
Javier Aviles called: Left message for Angie at [employer] [phone]
--- NOTE | 2018-12-26 10:40 | NUR ---
CONSULTATION PAGED/CALLED Reason for Consultation: [] PNA PLEURAL EFFUSION Person Who was Notified: [] BEN Consulting Physician: [] DR BORJAS, DIRECTOR DRUG SAFETY FOR DR LENTZ Research Investigator Specialty: [] PULMONOLOGY Ordering Physician: [] DR DAVIS
--- NOTE | 2018-12-26 11:00 | NUR ---
Notes- In bed, awake. family and visitor at bedside. No acute distress noted. IVF infusing well. Repositioned for comfort.
[2018-12-26 11:22] VITALS: BP_SYST 119
--- NOTE | 2018-12-26 15:00 | NUR ---
Notes- In bed, awake. complains of abdominal pain. Dr. calero at bedside and aware.
[2018-12-26 15:21] VITALS: BP_SYST 149
--- NOTE | 2018-12-26 16:21 | NUR ---
CONSULTATION PAGED/CALLED Reason for Consultation: [] ABD PAIN Person Who was Notified: [] CARON Consulting Physician: [] DR UNGER VIDEO SOFTWARE ENGINEER FOR DR SEWELL Printing Gray Cloth Tender Specialty: [] GI Ordering Physician: [] DR Emilie DAVIS
--- NOTE | 2018-12-26 16:22 | NUR ---
CONSULTATION PAGED/CALLED Reason for Consultation: [] F/U OF KNOWN MALIGNANCY Person Who was Notified: [] CRISTAL Consulting Physician: [] DR Lexie BUNDY Fitness Club Manager Specialty: [] ONCO/HEMATOLOGY Ordering Physician: [] DR Emilie DAVIS
--- NOTE | 2018-12-26 17:00 | NUR ---
NOTES- SPOKE TO Stephanie Person, Tere mendez ( PA for Dr. Haji) and all aware of consults. Dr Miner covering for Dr. Ruvalcaba will come and see patient.
--- NOTE | 2018-12-26 18:19 | NUR ---
Notes- Patient went to CT scan with no distress noted.
[2018-12-26 19:45] VITALS: BP_SYST 117
--- NOTE | 2018-12-26 19:45 | NUR ---
INITIAL NOTE AT INITIAL ASSESSMENT, PATIENT IS RESTING IN BED, STABLE, NO SIGNS OF RESPIRATORY DISTRESS. PATIENT VERBALIZES NO PAIN. PLAN OF CARE IS COMMUNICATED WITH THE PATIENT. BED IS LOCKED, ALARMED, AND AT THE LOWEST LEVEL. FALL, SAFETY, ASPIRATION, AND RESPIRATORY PRECAUTIONS WILL BE IN PLACE THROUGHOUT THE SHIFT.
--- NOTE | 2018-12-26 21:45 | NUR ---
HYGIENE CARE HYGIENE CARE PROVIDED AT THIS TIME, PATIENT TOLERATED WELL. HE IS REPOSITIONED FOR COMFORT. CALL LIGHT PLACED WITHIN REACH. BED IS LOCKED, ALARMED, AND AT THE LOWEST LEVEL.
--- NOTE | 2018-12-26 22:00 | NUR ---
COMMUNICATION WITH DR. RYAN DAVIS HAS CALLED AT THIS TIME FOR UPDATE ON PATIENT'S ABDOMINAL CT SCAN, UNFORTUNATELY, NO REPORT IS AVAILABLE AT THIS TIME. INFORMED THAT SHE WILL BE CALLED TONIGHT IF ONE BECOMES AVAILABLE, SHE HAS REQUESTED ONLY TO CALL HER IF CT SCAN IS ABNORMAL. ALSO GAVE ORDER: OK TO GIVE PATIENT SMALL SIPS OF WATER TOLERATED.
--- NOTE | 2018-12-26 23:45 | NUR ---
NOTE PATIENT IS SLEEPING, STABLE, NO SIGNS OF RESPIRATORY DISTRESS. BED IS LOCKED, ALARMED, AND THE LOWEST LEVEL.
[2018-12-27] VITALS: BP_SYST 115
[2018-12-27] MEDS: PIPERACILLIN/TAZO 2.25G/DEX-IS 50 ML IV SCH ×5 (00:02→22:56)
[2018-12-27] MEDS: NACL 0.9% 1,000 ML IV SCH (00:03)
[2018-12-27] MEDS: IPRATROPIUM/ALBUTEROL SULFATE 3 ML AMPUL.NEB (DUONEB) INH SCH ×5 (01:43→23:54)
--- NOTE | 2018-12-27 01:45 | NUR ---
NOTE PATIENT IS SLEEPING, STABLE, NO SIGNS OF RESPIRATORY DISTRESS. BED IS LOCKED, ALARMED, AND THE LOWEST LEVEL.
--- NOTE | 2018-12-27 03:15 | NUR ---
NOTE PATIENT IS SLEEPING, STABLE, NO SIGNS OF RESPIRATORY DISTRESS. BED IS LOCKED, ALARMED, AND THE LOWEST LEVEL.
--- NOTE | 2018-12-27 04:10 | NUR ---
NOTE PATIENT IS SLEEPING, STABLE, NO SIGNS OF RESPIRATORY DISTRESS. BED IS LOCKED, ALARMED, AND THE LOWEST LEVEL.
--- NOTE | 2018-12-27 06:10 | NUR ---
CLOSING NOTE PATIENT SLEPT WELL THROUGHOUT THE NIGHT. AT THIS TIME, HE IS RESTING IN BED, STABLE, NO SIGNS OF RESPIRATORY DISTRESS. CALL LIGHT IS WITHIN REACH. BED IS LOCKED, ALARMED, AND AT THE LOWEST LEVEL. FALL, SAFETY, ASPIRATION, AND RESPIRATORY PRECAUTIONS HAVE BEEN TAKEN THROUGHOUT THE SHIFT. WILL CONTINUE TO MONITOR UNTIL SHIFT REPORT IS GIVEN AT BEDSIDE TO AM NURSE.
--- NOTE | 2018-12-27 07:04 | NUR ---
Nutrition Update Ramana Scale 15 noted. Pt admitted for ALOC, Metabolic Encephalopathy Diet: NPO BMI: 21 kg/m2 RD to follow per nutrition care standards.
--- NOTE | 2018-12-27 07:41 | NUR ---
CLOSING NOTE PATIENT SLEPT WELL THROUGHOUT THE NIGHT. AT THIS TIME, HE IS RESTING IN BED, STABLE, NO SIGNS OF RESPIRATORY DISTRESS. CALL LIGHT IS WITHIN REACH. BED IS LOCKED, ALARMED, AND AT THE LOWEST LEVEL. FALL, SAFETY, ASPIRATION, AND RESPIRATORY PRECAUTIONS HAVE BEEN TAKEN THROUGHOUT THE SHIFT. WILL CONTINUE TO MONITOR UNTIL SHIFT REPORT IS GIVEN AT BEDSIDE TO AM NURSE. Addendum: 12/27/18 at 0744 by James Elmore RN NOTE INTENDED FOR DIFFERENT TIME
--- NOTE | 2018-12-27 07:45 | NUR ---
VISIT: AT BEDSIDE FOR ASSESSMENT OF PT, NEW ORDERS GIVEN, WILL CON'T TO MONITOR AND ASSESS.
[2018-12-27 08:00] VITALS: BP_SYST 134
--- NOTE | 2018-12-27 08:00 | NUR ---
ASSUMPTION OF CARE: RECEIVED PT AWAKE/CONFUSED, FOLLOWS COMMAND, DX:RISK FOR FALL/INJURY, R/T ALOC, VSS, NO DISTRESS NOTED AT THIS TIME, C/O PAIN TO ABD, 7-10 VIA SZYMANSKI-PAUL SCALE, AFEBRILE, BREATH SOUNDS ARE CLEAR, BREATHING UNLABORED, IV SITE INTACT, PATENT, NO REDNESS OR SWELLING, ROOM CLOSE TO NURSES STATION, CALL LIGHT PLACED WITHIN REACH, WILL CON'T TO MONITOR AND ASSESS.
--- NOTE | 2018-12-27 08:00 | NUR ---
VISIT: (UROLOGIST) AT BEDSIDE, NEW SANTO CATH INSERTED 16 FR, AT BEDSIDE, USING ASEPTIC TECHNIQUE, TOLERATED WELL, WILL CON'T TO MONITOR AND ASSESS.
[2018-12-27 08:48] LABS: BASOPHILS % (AUTO) 0.3 % (0.0-2.0); EOSINOPHILS # (AUTO) 0.1 K/uL (0.0-0.4); EOSINOPHILS % (AUTO) 1.1 % (0.0-4.0); HEMATOCRIT 28.6 % (36-54); HEMOGLOBIN 9.3 g/dL (14.0-18.0); LYMPHOCYTES # (AUTO) 0.3 K/uL (1.0-5.5); LYMPHOCYTES % (AUTO) 3.3 % (20.5-51.5); MEAN CORPUSCULAR HEMOGLOBIN 28 pg (27-31); MEAN CORPUSCULAR HGB CONC 32 % (32-36); MEAN CORPUSCULAR VOLUME 86 fL (79.0-98.0); MONOCYTES % (AUTO) 9.5 % (1.7-9.3); NEUTROPHILS # (AUTO) 8.7 K/uL (1.8-7.7); NEUTROPHILS % (AUTO) 85.8 % (40.0-70.0); PLATELET COUNT (AUTO) 309 K/uL (130-430); RED BLOOD CELL COUNT(AUTO) 3.34 MIL/uL (4.2-6.2); RED CELL DISTRIBUTION WIDTH 17.7 % (9.0-15.0); WHITE BLOOD COUNT (AUTO) 10.2 K/uL (4.8-10.8)
[2018-12-27 09:10] LABS: ALANINE AMINOTRANSFERASE 7 U/L (12-78); ALBUMIN 1.9 g/dL (3.4-4.8); AMYLASE 42 U/L (0-100); ANION GAP 7 (5-15); ASPARTATE AMINOTRANSFERASE 23 U/L (10-37); CALCIUM 10.5 mg/dL (8.4-11.0); CHLORIDE 106 mmol/L (98-107); GLUCOSE 69 mg/dL (70-99); LIPASE 81 U/L (73-393); POTASSIUM 4.5 mmol/L (3.5-5.1); SODIUM SERUM 137 mmol/L (136-145); TOTAL BILIRUBIN 0.5 mg/dL (0.0-1.0); TOTAL IRON BIND. CAPACITY 209 ug/dL (250-450); UREA NITROGEN, BLOOD 74 mg/dL (8-21)
--- NOTE | 2018-12-27 09:49 | NUR ---
S.T. SWALLOW EVAL SWALLOW EVAL COMPLETED. PT PRESENTS W/ SEV OROPHARYNGEAL DYSPHAGIA W/ POOR BOLUS MANIPULATION AND TRANSFER WITH DELAYED SWALLOW AND COUGHING ON TSP HONEY THICK LIQUIDS. INTEREST FOR P.O. IS LOW. PT IS AT HIGH RISK FOR ASPIRATION, MALNUTRITION, AND DEHYDRATION. REC: NPO - ALTERNATIVE METHOD FOR FEEDING. NURSE BHARAT NOTIFIED. G8996 CM G8997 CM G8998 CM NOMS LEVEL 2
--- NOTE | 2018-12-27 09:50 | NUR ---
SWALLOW EVAL: SWALLOW EVAL COMPLETED BY GREGORIO (SPEECH THERAPIST) RECOMMENDS PT REMAINS NPO.
[2018-12-27] MEDS ORDERED: MORPHINE 2 MG/ML INJ. SYRINGE ONE (10:46)
[2018-12-27] MEDS: D5NS 1,000 ML IV SCH ×2 (11:45→20:51)
[2018-12-27 12:00] VITALS: BP_SYST 111
--- NOTE | 2018-12-27 12:45 | NUR ---
PHYSICAL THERAPY PT APPEARS VERY LETHARGIC AND UNABLE TO FOLLOW COMMANDS AT THIS TIME SECONDARY TO PATIENT MEDICATED PER NURSING. UNABLE TO ATTEMPT AT THIS TIME. WILL ATTEMPT NEXT VISIT. NURSING AWARE.
--- NOTE | 2018-12-27 13:40 | NUR ---
Nutrition Assessment (short note d/t lack of time) A-RD reviewed pt's current EMR including diet Hx, physician notes, nursing notes, pertinent labs/meds/procedures, care trends and care activity. Primary Dx: ALOC, Metabolic Encephalopathy Pt seen resting in bed at time of RD visit. Pt got agitated during RD visit and started yelling. Pt is confused and appeared emaciated. Pt's previous admission records showed he as 6'0 and current bed scale weight is 138 lb. Pt currently on NPO. Per bed huddle discussion, CT showed large mass. Ht: 6'0 Wt: 138 lb, 63 kg %IBW:78 IBW: 178 lb, 81 kg ESTIMATED NUTRITIONAL REQUIREMENTS CALORIES/DAY: 0357-6246 kcal/day (30-35 kcal/kg IBW for wt gain promotion ) PROTEIN/DAY: 49-65 gm/day (.6-.8 gm/kg IBW for Renal Dz) FLUID/DAY: per MD (Renal Dz) D: Underweight r/t chronic illness and advanced age AEB BMI 18.8 kg/m2 and 78% IBW. I: 1. Recommend: If/when medically appropriate, advance diet w/ ONS for additional calories. 2. Consider Megace once diet is advanced to stimulate appetite. M: Monitor advancement of diet, appetite and PO intake w/ goal of pt meeting at least 75% of estimated nutritional needs, labs trending WNL, normal GI function, skin integrity/wt maintenance. E: RD to F/U HR within 2-3 days [facility] [place], RD
--- NOTE | 2018-12-27 13:48 | NUR ---
Dietitian Recommendation 1. Recommend: If/when medically appropriate, advance diet w/ ONS for additional calories. 2. Consider Megace once diet is advanced to stimulate appetite. MARY, RD
[2018-12-27 16:50] VITALS: BP_SYST 128
--- NOTE | 2018-12-27 17:50 | NUR ---
VISIT: AT BEDSIDE FOR ASSESSMENT OF PT, NEW ORDERS GIVEN, WILL CON'T WITH PLAN OF CARE.
--- NOTE | 2018-12-27 19:30 | NUR ---
OPENING NOTE RECEIVED CARE OF PT. PT RESTING IN BED, STABLE, WITH NO S/S OF ACUTE DISTRESS. BREATHING IS EVEN AND UNLABORED. NO SIGN OF PAIN OR DISCOMFORT. PT ORIENTED TO USE OF CALL LIGHT AND ENCOURAGED TO CALL FOR ASSISTANCE. SAFETY PRECAUTIONS ARE IN PLACE: BED IS LOCKED, ALARMED, AND AT THE LOWEST LEVEL. SAFETY, ASPIRATION, AND SKIN PRECAUTIONS WILL BE IN PLACE THROUGHOUT THE SHIFT.
[2018-12-27 20:00] VITALS: BP_SYST 132
--- NOTE | 2018-12-27 20:51 | NUR ---
IVF BAG CHANGE NEW BAG OF D5NS HUNG. IV IS PATENT AND IS INFUSING WELL. NO SIGN OF INFILTRATION AT IV SITE. PT RESTING WITH NO SIGN OF RESPIRATORY DISTRESS. SAFETY, SKIN, AND ASPIRATION PRECAUTIONS ARE IN PLACE. WILL MONITOR.
[2018-12-27] MEDS: FAMOTIDINE PF 20 MG/2 ML VIAL IVP SCH (22:44)
--- NOTE | 2018-12-27 22:56 | NUR ---
SCHEDULED MEDICATIONS PT GIVEN SCHEDULED PEPCID VIA IVP AND SCHEDULED ZOSYN VIA IVPB. MEDICATIONS EXPLAINED TO PT, PT CONFUSED AND DID NOT VERBALIZE UNDERSTANDING. NO S/S OF DISTRESS. PT IS RESTING IN BED AND DENIES PAIN AT THIS TIME. BED IS LOCKED, ALARMED, AND AT THE LOWEST LEVEL. WILL MONITOR.
[2018-12-28 00:14] VITALS: BP_SYST 114
--- NOTE | 2018-12-28 01:35 | NUR ---
RN ROUNDS: PATIENT IS SLEEPING, STABLE, NO SIGNS OF RESPIRATORY DISTRESS. VISIBLE RISE AND FALL OF CHEST BILATERALLY. SAFETY MAINTAINED. BED IS LOCKED, ALARMED, AND THE LOWEST LEVEL. CALL LIGHT IS WITH PT. WILL MONITOR.
--- NOTE | 2018-12-28 03:25 | NUR ---
SLEEPING PATIENT IS RESTING IN BED WITH EYES CLOSED. NO S/S OF ACUTE DISTRESS, VSS, NO SIGNS OF RESPIRATORY DISTRESS. BED IS LOCKED, ALARMED, AND THE LOWEST LEVEL. ASPIRATION PRECAUTIONS REMAIN IN PLACE. WILL MONITOR.
[2018-12-28] MEDS: D5NS 1,000 ML IV SCH ×3 (04:10→23:04)
--- NOTE | 2018-12-28 04:41 | NUR ---
TAP WATER ENEMA PT GIVEN TAP WATER ENEMA WITH 500 CC OF TAP WATER. PT TOLERATED WELL, NO SIGN OF DISTRESS. PT UNABLE TO HOLD IN THE WATER DESPITE EDUCATION. PT CLEANED AND REPOSITIONED WITH ASSISTANCE FROM SHARON RIBEIRO. PILLOW SUPPORT IS IN PLACE. ASPIRATION AND FALL PRECAUTIONS MAINTAINED. WILL MONITOR.
[2018-12-28] MEDS: PIPERACILLIN/TAZO 2.25G/DEX-IS 50 ML IV SCH ×2 (05:32→11:46)
--- NOTE | 2018-12-28 06:44 | NUR ---
CLOSING NOTE PT IS RESTING COMFORTABLY IN BED WITH NO S/S OF ACUTE DISTRESS. BREATHING IS UNLABORED TO ROOM AIR. IVF RUNNING AT ORDERED RATE, NO SIGN OF INFILTRATION AT IV SITE. SANTO CATHETER IS INTACT AND DRAINING WELL TO GRAVITY. PT DENIES PAIN OR DISCOMFORT. NPO STATUS HAS BEEN MAINTAINED. ALL NEEDS WERE MET DURING SHIFT. SAFETY PRECAUTIONS REMAIN IN PLACE. WILL CONTINUE TO MONITOR UNTIL PT CARE IS ENDORSED TO DAY SHIFT RN.
[2018-12-28 07:17] LABS: BASOPHILS % (AUTO) 0.2 % (0.0-2.0); EOSINOPHILS # (AUTO) 0.1 K/uL (0.0-0.4); EOSINOPHILS % (AUTO) 0.9 % (0.0-4.0); HEMATOCRIT 29.7 % (36-54); HEMOGLOBIN 9.4 g/dL (14.0-18.0); LYMPHOCYTES # (AUTO) 0.2 K/uL (1.0-5.5); LYMPHOCYTES % (AUTO) 2.1 % (20.5-51.5); MEAN CORPUSCULAR HEMOGLOBIN 27 pg (27-31); MEAN CORPUSCULAR HGB CONC 32 % (32-36); MEAN CORPUSCULAR VOLUME 86 fL (79.0-98.0); MONOCYTES # (AUTO) 1.1 K/uL (0.0-1.0); MONOCYTES % (AUTO) 9.2 % (1.7-9.3); NEUTROPHILS % (AUTO) 87.6 % (40.0-70.0); PLATELET COUNT (AUTO) 317 K/uL (130-430); RED BLOOD CELL COUNT(AUTO) 3.47 MIL/uL (4.2-6.2); RED CELL DISTRIBUTION WIDTH 17.7 % (9.0-15.0); WHITE BLOOD COUNT (AUTO) 11.4 K/uL (4.8-10.8)
[2018-12-28 07:19] LABS: ALANINE AMINOTRANSFERASE 8 U/L (12-78); ALBUMIN 1.8 g/dL (3.4-4.8); ANION GAP 12 (5-15); ASPARTATE AMINOTRANSFERASE 24 U/L (10-37); CALCIUM 10.4 mg/dL (8.4-11.0); CHLORIDE 110 mmol/L (98-107); CREATININE 3.06 mg/dL (0.55-1.30); GLUCOSE 127 mg/dL (70-99); SODIUM SERUM 143 mmol/L (136-145); TOTAL BILIRUBIN 0.5 mg/dL (0.0-1.0); UREA NITROGEN, BLOOD 71 mg/dL (8-21)
[2018-12-28] MEDS: IPRATROPIUM/ALBUTEROL SULFATE 3 ML AMPUL.NEB (DUONEB) INH SCH ×3 (07:27→19:52)
[2018-12-28 07:45] LABS: TOTAL IRON BIND. CAPACITY 206 ug/dL (250-450)
--- NOTE | 2018-12-28 08:36 | NUR ---
PT IN BED ON BREATHING TREATMENT AWAKES UPON AROUSAL NON SPEAKING AT THIS TIME. vss no acute distress noted iv medications infusng iv site paten and inact. no s/s of acute distress.
--- NOTE | 2018-12-28 08:53 | NUR ---
pt in bed arouses to tactile stimulation no acute distress call niece to recieve consen unable to reach family will attempt agin later in shift.
--- NOTE | 2018-12-28 10:27 | NUR ---
Hospice Dr Mcmanus made arrangements for hospice yesterday, 12/27/18. CENTRIFUGAL SUPERVISOR never received a referral. Nathan LACEY phoned asking about hospice arrangements. CENTRIFUGAL SUPERVISOR noted that Dr Mcmanus had phoned [facility] Gomez. Patient was previously home with [facility], p [phone] f [phone]. Patient was recently at [facility] retirement. CENTRIFUGAL SUPERVISOR phoned LESLIE Roslaes. They would like to have patient go home on hospice and would like to use [facility], as in the past. They have a caregiver for patient and patient wants to go home. CENTRIFUGAL SUPERVISOR spoke with Charles. He has patient's information and will begin to prepare for possible discharge today. He will contact Bobby. Phoned Lelia REYES and notified her of above. She will contact Dr Mcmanus to determine if the plan is for discharge today. Addendum: 12/28/18 at 1709 by Nikki Leblanc LCSW Order to DC once DME set up with hospice. Charles with Dr Galicia called. They cannot get equipment and transportation set up by a reasonable time tonight. Will plan for discharge tomorrow morning. Notified nurses' station.
[2018-12-28 11:22] VITALS: BP_SYST 124
[2018-12-28] MEDS ORDERED: PAMIDRONATE DISODIUM 30 MG in NS 500 ML IV ONE (11:30)
[2018-12-28 12:06] LABS: A/G RATIO 0.7 (0.7-1.7); ALBUMIN 2.2 g/dL (2.9-4.4); ALPHA-1-GLOBULIN 0.4 g/dL (0.0-0.4); ALPHA-2-GLOBULIN 1.2 g/dL (0.4-1.0); BETA GLOBULIN 0.7 g/dL (0.7-1.3); GAMMA GLOBULIN 0.7 g/dL (0.4-1.8); GLOBULIN, TOTAL 3.1 g/dL (2.2-3.9); M-SPIKE Not Observed g/dL (Not Observed)
--- NOTE | 2018-12-28 13:51 | NUR ---
tried to contact mati (pokilo) for paracentesis consent unable to reach tried multiple numbers. talked to madisyn at bedside unable to reach him as well.
[2018-12-28 15:06] LABS: FOLATE (FOLIC ACID) 4.7 ng/mL (>3.0)
[2018-12-28 16:04] VITALS: BP_SYST 129
[2018-12-28] MEDS ORDERED: MEROPENEM 1 GM in NS 100 ML IV ONE (17:00)
--- NOTE | 2018-12-28 19:25 | NUR ---
OPENING NOTE RECEIVED CARE OF PT. PT RESTING IN BED, STABLE, WITH NO S/S OF ACUTE DISTRESS. BREATHING IS EVEN AND UNLABORED TO ROOM AIR. NO SIGN OF PAIN OR DISCOMFORT. PT ORIENTED TO USE OF CALL LIGHT AND ENCOURAGED TO CALL FOR ASSISTANCE. SAFETY PRECAUTIONS ARE IN PLACE: BED IS LOCKED, ALARMED, AND AT THE LOWEST LEVEL. SAFETY, ASPIRATION, AND SKIN PRECAUTIONS WILL BE IN PLACE THROUGHOUT THE SHIFT. WILL MONITOR.
[2018-12-28 20:00] VITALS: BP_SYST 116
[2018-12-28] MEDS: MORPHINE 2 MG/ML INJ. SYRINGE IVP PRN (21:15)
--- NOTE | 2018-12-28 21:15 | NUR ---
PAIN/MORPHINE PT IS MOANING IN BED WITH FACE IN A GRIMACE. PT STATED HE WAS IN PAIN WHEN ASKED. MORPHINE 2 MG IVP ADMINISTERED ORDERED. IV IS PATENT AND INFUSING WELL. PT EDUCATED REGARDING MEDICATION AND POTENTIAL SIDE EFFECTS. NO S/S OF RESPIRATORY DISTRESS. SAFETY PRECAUTIONS REMAIN IN PLACE. WILL MONITOR.
[2018-12-28] MEDS: FAMOTIDINE PF 20 MG/2 ML VIAL IVP SCH (23:02)
--- NOTE | 2018-12-28 23:02 | NUR ---
SCHEDULED MEDICATION PT GIVEN SCHEDULED PEPCID VIA IVP. MEDICATION EXPLAINED TO PT, PT CONFUSED AND DID NOT VERBALIZE UNDERSTANDING. NO S/S OF DISTRESS. PT IS RESTING IN BED AND DENIES PAIN AT THIS TIME. BED IS LOCKED, ALARMED, AND AT THE LOWEST LEVEL. WILL MONITOR.
[2018-12-29 00:08] VITALS: BP_SYST 140
[2018-12-29] MEDS: IPRATROPIUM/ALBUTEROL SULFATE 3 ML AMPUL.NEB (DUONEB) INH SCH ×3 (00:40→13:25)
--- NOTE | 2018-12-29 02:02 | NUR ---
RN ROUNDS: PT IS RESTING IN BED, NO S/S OF ACUTE DISTRESS. ORAL CARE PROVIDED, PT TOLERATED WELL. NO SIGN OF PAIN AT THIS TIME. BREATHING IS UNLABORED TO ROOM AIR. IVF INFUSING AT ORDERED RATE. SAFETY, ASPIRATION, AND SKIN PRECAUTIONS OBSERVED. WILL MONITOR.
--- NOTE | 2018-12-29 04:30 | NUR ---
TAP WATER ENEMA PT GIVEN TAP WATER ENEMA WITH 500 CC OF TAP WATER. PT TOLERATED WELL, NO SIGN OF DISTRESS. PT CLEANED AND REPOSITIONED WITH ASSISTANCE FROM SHARON ESPINOSA. NEW GOWN PROVIDED. PILLOW SUPPORT IS IN PLACE. ASPIRATION AND FALL PRECAUTIONS MAINTAINED. WILL MONITOR.
[2018-12-29] MEDS ORDERED: MEROPENEM 500 MG in NS 50 ML IV SCH (06:00)
--- NOTE | 2018-12-29 06:43 | NUR ---
CLOSING NOTE PT IS RESTING COMFORTABLY IN BED WITH NO S/S OF ACUTE DISTRESS. BREATHING IS UNLABORED TO ROOM AIR. IVF RUNNING AT ORDERED RATE, NO SIGN OF INFILTRATION AT IV SITE. SANTO CATHETER IS INTACT AND DRAINING WELL TO GRAVITY. NO SIGN OF PAIN AT THIS TIME. NPO STATUS HAS BEEN MAINTAINED. ALL NEEDS WERE MET DURING SHIFT. SAFETY, SKIN AND ASPIRATION PRECAUTIONS REMAINED IN PLACE THROUGHOUT SHIFT. WILL CONTINUE TO MONITOR UNTIL PT CARE IS ENDORSED TO DAY SHIFT RN.
[2018-12-29 07:18] LABS: ALANINE AMINOTRANSFERASE 8 U/L (12-78); ALBUMIN 1.8 g/dL (3.4-4.8); ANION GAP 8 (5-15); ASPARTATE AMINOTRANSFERASE 25 U/L (10-37); CALCIUM 10.3 mg/dL (8.4-11.0); CHLORIDE 113 mmol/L (98-107); CREATININE 2.99 mg/dL (0.55-1.30); GLUCOSE 128 mg/dL (70-99); SODIUM SERUM 142 mmol/L (136-145); TOTAL BILIRUBIN 0.5 mg/dL (0.0-1.0); UREA NITROGEN, BLOOD 67 mg/dL (8-21)
--- NOTE | 2018-12-29 07:35 | NUR ---
Opening note Patient resting in bed at this time, no complaints of pain. Iv patent, intact, and infusing fluids as ordered. No adverse side effects noted. No infiltration noted. On safety and aspiration precautions, HOB kept elevated, bed alarm on, bed in lowest position, call light within reach. Will continue to monitor.
[2018-12-29 08:10] VITALS: BP_SYST 123
--- NOTE | 2018-12-29 09:00 | NUR ---
Rounds patient resting in bed at this time, no complaints of pain. Skin care provided. Heels offloaded using pillows.
--- NOTE | 2018-12-29 09:35 | NUR ---
Hospice Phoned Charles with [facility] [phone]. All is arranged but transportation. He will call back shortly with the time the ambulance is expected to arrive. Addendum: 12/29/18 at 1011 by Nikki RODRIGUESW Transport set up with [facility] [phone] for 3pm [facility]. Notified AMY
[2018-12-29 11:23] VITALS: BP_SYST 103
--- NOTE | 2018-12-29 11:30 | NUR ---
Rounds patient resting in bed, mumbling noted. Asked patient if he was having pain. Patient stated no, but unable to answer other questions. Skin care provided.
[2018-12-29 12:00] VITALS: BP_SYST 103
[2018-12-29] MEDS: MORPHINE 2 MG/ML INJ. SYRINGE IVP PRN (12:37)
[2018-12-29] MEDS: D5NS 1,000 ML IV SCH (13:10)
--- NOTE | 2018-12-29 13:15 | NUR ---
Pain Patient noted to be moaning, pain medication given as ordered, no adverse side effects noted. IV patent, intact and infusing fluids. Mayer catheter draining myrna colored urine.
--- NOTE | 2018-12-29 15:26 | NUR ---
D/C Patient Patient given medication reconciliation form and D/C instructions. Patient unable to concentrate. patient unable to verbalize understandiing. Exit Care provided. MD discussed with patient the results and treatment provided. Patient taken via gurney. ID band removed. IV catheter left in place per MD orders, neri cathter left in place as order.Dishcarge packet with instructions sent with patient. All belongings sent with patient.
== END 2018-12-29 15:24 | disposition hospice, home (50) | DRG 871 ==
LOC: SED 18:00 → STU 20:19
PROVIDERS: ADMIT Internal Medicine; ATTEND Internal Medicine
DX: A41.9 Sepsis, unspecified organism (principal); G93.41 Metabolic encephalopathy; E43 Unspecified severe protein-calorie malnutrition; N17.0 Acute kidney failure with tubular necrosis; J18.9 Pneumonia, unspecified organism; N13.30 Unspecified hydronephrosis; R18.8 Other ascites; C78.89 Secondary malignant neoplasm of other digestive organs; J91.8 Pleural effusion in other conditions classified elsewhere; C67.9 Malignant neoplasm of bladder, unspecified; D64.9 Anemia, unspecified; E83.52 Hypercalcemia; F03.90 Unspecified dementia, unspecified severity, without behavioral disturbance, psychotic disturbance, mood disturbance, and anxiety; I10 Essential (primary) hypertension; K21.9 Gastro-esophageal reflux disease without esophagitis; K56.41 Fecal impaction; N28.1 Cyst of kidney, acquired; N40.0 Benign prostatic hyperplasia without lower urinary tract symptoms; R62.7 Adult failure to thrive; Z96.649 Presence of unspecified artificial hip joint; Z96.659 Presence of unspecified artificial knee joint; F32.9 Major depressive disorder, single episode, unspecified; E86.0 Dehydration; G89.4 Chronic pain syndrome; K76.89 Other specified diseases of liver; Z68.21 Body mass index [BMI] 21.0-21.9, adult
CPT/HCPCS: 36415; 36600; 70450-TC; 71045; 71250-TC; 72125-TC; 76857; 80053; 81000-TC; 82150-TC; 82306; 82550-TC; 82607; 82728; 82746; 82803-TC; 82962; 83540-TC; 83550-TC; 83605; 83690-TC; 83735-TC; 83880; 83970; 84155; 84165; 84484; 85025; 85610-TC; 85730-TC; 87040-TC; 87081; 87086; 87186-TC; 92610-GN; 93005; 94640; 94760; 96365; 97110-GP; 97530-GP; 99285; G0378; J2185; J2270; J2430; J2543; J3490; J7030; J7040; J7042; J7060; J7620